=== PATIENT | female | born 1990 | race Caucasian/White ===

== ENCOUNTER → 2017-02-04 | Outpatient (CLI) | payer OTHER ==
[~2017-02-04] MED LIST: DOCU10ELUD FT; IBUP80TA FT; PERCOCET FT
--- NOTE | 2017-02-04 15:19 | REP ---
LUMBAR SPINE SERIES: Five views. HISTORY: Low back pain and left hip pain 1 day after fall. FINDINGS: Lumbar vertebral body heights are preserved. Alignment is normal. No fracture or collapse is seen. Pedicles and posterior elements are intact. Psoas margins are symmetric. Sacrum and SI joints are unremarkable. IMPRESSION: Negative lumbar spine radiographs. Signed by Juan Ceja MD 02/04/2017 03:22 P
--- NOTE | 2017-02-04 15:20 | REP ---
LEFT HIP: Two views. HISTORY: Pain 1 day after a fall. FINDINGS: AP and frog-leg views of the left hip show an intact left pelvic ring. The femoral head is smooth and rounded and hip joint space is preserved. No hip fracture is seen IMPRESSION: No fracture noted. Signed by Juan Ceja MD 02/04/2017 03:22 P
== END ==
LOC: M ADAMS 14:12
PROVIDERS: ATTEND Physician Assistant Medical
DX: M54.5 Low back pain (principal)

== ENCOUNTER 2017-05-23 06:05 | Day surgery (SDC) | payer OTHER ==
[2017-05-23] MEDS: LR 1,000 ML IV ×4 (06:36→17:16)
[2017-05-23 06:50] LABS: HEMATOCRIT 33.1 % (36.0-47.0); HEMOGLOBIN 10.9 g/dl (12.0-16.0); MEAN CORPUSCULAR HEMOGLOBIN 28.8 pg (27.0-33.0); MEAN CORPUSCULAR HGB CONC 32.9 g/dl (32.0-36.5); MEAN CORPUSCULAR VOLUME 87.6 fl (80.0-96.0); PLATELET COUNT, AUTOMATED 252 10^3/uL (150-450); RED BLOOD COUNT 3.78 10^6/uL (4.00-5.40); RED CELL DISTRIBUTION WIDTH 12.8 % (11.5-14.5); WHITE BLOOD COUNT 5.3 10^3/uL (4.0-10.0)
[2017-05-23] MEDS ORDERED: LIDOCAINE 2% INJ 100 MG/5 ML SDV (FOR ANES.) As Ordered (07:19)
[2017-05-23] MEDS ORDERED: ROCURONIUM BROMIDE 50 MG/5 ML VIAL As Ordered ×2 (07:19→07:45)
[2017-05-23] MEDS ORDERED: PROPOFOL 200 MG/20 ML VIAL As Ordered (07:19)
[2017-05-23] MEDS ORDERED: MIDAZOLAM INJ 2 MG/2 ML VIAL (J2250) As Ordered (07:20)
[2017-05-23] MEDS ORDERED: fentaNYL 250 MCG/5 ML INJECTION (J3010) As Ordered (07:20)
[2017-05-23] MEDS: CEFAZOLIN SOD 1 GM in APPROPRIATE DILUENT 1 EA IV (07:45)
[2017-05-23] MEDS ORDERED: KETOROLAC 60 MG/2 ML VIAL (J1885) As Ordered (08:01)
[2017-05-23] MEDS ORDERED: GLYCOPYRROLATE INJ 0.2 MG/ML 2 ML VIAL As Ordered (08:01)
[2017-05-23] MEDS ORDERED: ONDANSETRON 4MG/2ML VIAL (J2405) As Ordered (08:01)
[2017-05-23] MEDS ORDERED: dexameTHASONE 4 MG/ML 1ML VIAL (J1100) As Ordered (08:01)
[2017-05-23] MEDS ORDERED: NEOSTIGMINE 10 MG/10 ML VIAL (J2710) As Ordered (08:01)
[2017-05-23] MEDS ORDERED: HYDROmorphone HCL 2 MG/ML 1ML VIAL (J1170) As Ordered (08:02)
[2017-05-23] MEDS: BUPIVACAINE HCL 0.25% 10 ML VIAL As Ordered (08:15)
[2017-05-23] MEDS ORDERED: SEVOFLURANE INHAL SOLN 250 ML BTL As Ordered (08:23)
[2017-05-23] MEDS ORDERED: ePHEDrine SULFATE 25 MG/5 ML(5MG/ML) SYRINGE As Ordered (08:33)
[2017-05-23] MEDS: METHYLENE BLUE 0.5% (5MG/ML) 10 ML AMP (PROVAYBLUE)(Q9968 PER 1MG) As Ordered (08:52)
[2017-05-23] MEDS ORDERED: SUGAMMADEX SODIUM 500 MG/5 ML VIAL (BRIDION) As Ordered (09:06)
[2017-05-23] MEDS ORDERED: NORCO, ANEXSIA 5/325MG TABLET (HYDROcodone/ACETAMINOPHEN) As Ordered (09:33)
[2017-05-23] MEDS: NORCO, ANEXSIA 5/325MG TABLET (HYDROcodone/ACETAMINOPHEN) PO (09:38)
[2017-05-23] MEDS ORDERED: ONDANSETRON 4MG/2ML VIAL (J2405) IV ×2 (10:00→10:15)
[2017-05-23] MEDS ORDERED: fentaNYL 100 MCG/2 ML INJECTION (J3010) IV (10:00)
[2017-05-23] MEDS ORDERED: MORPHINE 4 MG/ML 1ML SYRINGE IV (10:15)
[2017-05-23] MEDS ORDERED: PERCOCET 5MG/325MG TAB PO (10:15)
[2017-05-23] MEDS: DOCUSATE SODIUM 100 MG CAP PO ×2 (10:54→20:27)
[2017-05-23] MEDS ORDERED: PROMETHAZINE INJ 25 MG/ML VIAL (J2550) As Ordered (11:59)
[2017-05-23] MEDS: PROMETHAZINE INJ 25 MG/ML VIAL (J2550) IV (12:08)
[2017-05-23] MEDS: PERCOCET 5MG/325MG TAB PO ×2 (13:58→20:29)
[2017-05-23] MEDS ORDERED: KETOROLAC 30 MG/ML VIAL (J1885) IV (17:00)
[2017-05-24 07:54] LABS: HEMATOCRIT 29.2 % (36.0-47.0); HEMOGLOBIN 9.5 g/dl (12.0-16.0); MEAN CORPUSCULAR HEMOGLOBIN 29.1 pg (27.0-33.0); MEAN CORPUSCULAR HGB CONC 32.5 g/dl (32.0-36.5); MEAN CORPUSCULAR VOLUME 89.6 fl (80.0-96.0); PLATELET COUNT, AUTOMATED 213 10^3/uL (150-450); RED BLOOD COUNT 3.26 10^6/uL (4.00-5.40); RED CELL DISTRIBUTION WIDTH 13.1 % (11.5-14.5); WHITE BLOOD COUNT 10.2 10^3/uL (4.0-10.0)
[2017-05-24] MEDS: DOCUSATE SODIUM 100 MG CAP PO (08:57)
[2017-05-24] MEDS: PERCOCET 5MG/325MG TAB PO (08:59)
== END 2017-05-24 11:05 | disposition home or self-care (01) ==
LOC: M SDC 06:05 → M PED 10:23
DX: D25.2 Subserosal leiomyoma of uterus (principal); D25.1 Intramural leiomyoma of uterus; N92.0 Excessive and frequent menstruation with regular cycle; N72 Inflammatory disease of cervix uteri; D64.9 Anemia, unspecified; R51 Headache; Z87.891 Personal history of nicotine dependence; Z98.51 Tubal ligation status
CPT/HCPCS: 58570

== ENCOUNTER → 2017-08-18 | Outpatient (CLI) | payer OTHER | LOC: M RAD 13:39 | DX: R10.2 Pelvic and perineal pain (principal); Z90.710 Acquired absence of both cervix and uterus | CPT/HCPCS: 76856 ==

== ENCOUNTER 2018-07-21 23:02 | Emergency (ER) | payer OTHER ==
[~2018-07-21 23:02] MED LIST changes: +MULT1TAB10 PO; +OXYC1TAB23 PO
[2018-07-22] MEDS ORDERED: ACETAMINOPHEN TAB 650MG DOSE (2X325MG) PO ONE (01:00)
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
[2018-07-22 02:42] VITALS: BP 115/76
== END 2018-07-22 02:43 | disposition home or self-care (01) ==
LOC: M ED 23:02
DX: S09.90XA Unspecified injury of head, initial encounter (principal); W19.XXXA Unspecified fall, initial encounter; Y92.830 Public park as the place of occurrence of the external cause; Y93.89 Activity, other specified; Y99.9 Unspecified external cause status; Z79.899 Other long term (current) drug therapy

== ENCOUNTER → 2018-12-04 | Outpatient (REF) | payer OTHER ==
[~2018-12-04] MED LIST changes: -DOCU10ELUD FT; +DOCU5LIQ FT; +OXYC1TAB23 FT; -PERCOCET FT
[2018-12-04 22:25] LABS: CHLAMYDIA DNA AMPLIFICATION NEGATIVE (NEGATIVE); GC DNA AMPLIFICATION NEGATIVE (NEGATIVE)
== END ==
LOC: M LAB REF 19:27
PROVIDERS: ATTEND Physician Assistant
DX: R30.0 Dysuria (principal)

== ENCOUNTER → 2019-02-21 | Outpatient (REF) | payer OTHER | LOC: M LAB REF 09:26 | PROVIDERS: ATTEND Physician Assistant Medical | DX: J02.9 Acute pharyngitis, unspecified (principal) ==

== ENCOUNTER → 2019-03-22 | Outpatient (CLI) | payer OTHER ==
--- NOTE | 2019-03-22 20:10 | REP ---
Clinical: Pelvic pain. Right ovarian cyst . Technique: Transabdominal pelvic ultrasound followed by transvaginal examination for better evaluation of the endometrium and adnexa with color Doppler evaluation of the ovaries. Findings: Bladder is unremarkable and measures 8.4 x 4.1 x 6.0 cm . The patient is status post hysterectomy. No pelvic mass or fluid collection is appreciated. Bilateral ovaries are normal in appearance and vascularity without evidence for torsion. Right ovary measures 2.2 x 2.4 x 2.2 cm ; R I = 0.30 . Left ovary measures 3.0 x 1.4 x 2.8 cm ; R I = 0.38 . Impression: 1. Status post hysterectomy. Normal bilateral ovaries. Electronically Signed by Ajit Delacruz MD 03/22/2019 08:02 P
--- NOTE | 2019-03-23 09:03 | REP ---
LEFT BREAST SONOGRAPHY: HISTORY: Solitary cyst left breast. The patient reports feeling a palpable lump in the left breast 5-6 o'clock position. FINDINGS: Scanning is performed from 4-6 -o'clock position in the left breast. In the palpable area of 5-o'clock position, there is a 7 x 6 x 2 mm cyst located 2.7 cm from the nipple. At 6-o'clock position, there is another cyst measuring 5 mm in greatest diameter. A few slightly prominent ducts are seen. No sonographically suspicious finding. IMPRESSION: BIRADS category 2 benign findings. Clinical followup is advised. Electronically Signed by uJan Ceja MD 03/23/2019 10:05 A
== END ==
LOC: M RAD 17:12
PROVIDERS: ATTEND Specialist
DX: N83.291 Other ovarian cyst, right side (principal); Z90.710 Acquired absence of both cervix and uterus

== ENCOUNTER → 2019-08-08 | Outpatient (REF) | payer OTHER ==
[2019-08-08 13:25] LABS: RUBELLA IgG QUALITATIVE IMMUNE (IMMUNE)
== END ==
LOC: M SFHCADAM 11:31
PROVIDERS: ATTEND Family Medicine
DX: Z01.84 Encounter for antibody response examination (principal)
CPT/HCPCS: 86762; 86765; G0463

== ENCOUNTER → 2019-10-15 | Outpatient (REF) | payer OTHER ==
[2019-10-15 16:45] LABS: HEMOGLOBIN A1c 5.2 %
[2019-10-15 17:08] LABS: FREE T4 0.87 NG/DL (0.76-1.46); THYROID STIMULATING HORMONE 1.88 uIU/ML (0.358-3.740)
[2019-10-15 17:11] LABS: FOLATE 14.8 NG/ML
== END ==
LOC: M SFHCADAM 13:40
PROVIDERS: ATTEND Family Medicine
DX: R20.2 Paresthesia of skin (principal)
CPT/HCPCS: 82607; 82746; 83036; 84439; 84443; G0463

== ENCOUNTER 2020-10-08 09:23 | Emergency (ER) | payer OTHER ==
[~2020-10-08] VITALS: Ht 154.9 cm; Wt 77.6 kg
[2020-10-08 10:44] LABS: BASO # 0.1 10^3/uL (0.0-0.2); BASO % 0.7 % (0.0-1.0); EOS # 0.2 10^3/uL (0.0-0.5); EOS % 3.1 % (0.0-3.0); HEMATOCRIT 40.3 % (36.0-47.0); HEMOGLOBIN 13.3 g/dl (12.0-15.5); LYMPH # 1.8 10^3/uL (1.5-5.0); LYMPH % 24.2 % (24.0-44.0); MEAN CORPUSCULAR HEMOGLOBIN 31.3 pg (27.0-33.0); MEAN CORPUSCULAR VOLUME 94.8 fl (80.0-96.0); MONO # 0.8 10^3/uL (0.0-0.8); NEUTROPHILS # 4.5 10^3/uL (1.5-8.5); NEUTROPHILS % 60.7 % (36.0-66.0); PLATELET COUNT, AUTOMATED 280 10^3/uL (150-450); RED BLOOD COUNT 4.25 10^6/uL (4.00-5.40); WHITE BLOOD COUNT 7.4 10^3/uL (4.0-10.0)
[2020-10-08 11:14] LABS: HCG, SERUM QUALITATIVE NEGATIVE (NEGATIVE)
[2020-10-08 11:16] LABS: ALBUMIN 3.8 GM/DL (3.2-5.2); ALT/SGPT 185 U/L (12-78); BILIRUBIN,DIRECT 0.1 MG/DL (0.0-0.2); BILIRUBIN,TOTAL 0.5 MG/DL (0.2-1.0); BLOOD UREA NITROGEN 7 MG/DL (7-18); CALCIUM LEVEL 9.7 MG/DL (8.5-10.1); CARBON DIOXIDE LEVEL 29 MEQ/L (21-32); CHLORIDE LEVEL 107 MEQ/L (98-107); CREATININE FOR GFR 0.65 MG/DL (0.55-1.30); GLOMERULAR FILTRATION RATE > 60.0 (>60); GLUCOSE, FASTING 90 MG/DL (70-100); LIPASE 104 U/L (73-393); POTASSIUM SERUM 4.1 MEQ/L (3.5-5.1); SODIUM LEVEL 141 MEQ/L (136-145); TOTAL PROTEIN 7.2 GM/DL (6.4-8.2)
[2020-10-08] MEDS ORDERED: ISOVUE-370 76% 100ML VIAL As Ordered ONE (11:49)
--- NOTE | 2020-10-08 12:13 | REP ---
INDICATION: RLQ pain, r/o appendicitis. COMPARISON: Comparison CT study January 09, 2019.. TECHNIQUE: Helical scanning was acquired and 4 mm axial images are re-formatted. Coronal and sagittal MPR images were generated and reviewed. The contrast enhancement dose is 100 mL of intravenous Isovue 370. FINDINGS: Preliminary digital railroad watchman radiograph shows a normal bowel gas pattern. Umbilical jewelry is seen. The lung bases are clear on axial CT images. The liver and the spleen are normal in size homogeneous in texture. No adrenal lesion is seen. No abnormality is noted in the pancreas or the gallbladder. The kidneys enhance symmetrically and are morphologically intact. No hydronephrosis or urinary tract calculus is seen. Bladder is unremarkable. The uterus is surgically absent. No adnexal abnormality is seen. A normal appendix is noted in the right lower quadrant retrocecal in position. No abdominal wall defect is seen. Bone window settings show no bony destructive lesion. IMPRESSION: Unremarkable CT of the abdomen and pelvis. Patient post hysterectomy. Normal appendix seen. No acute abdominal or pelvic abnormality. <Electronically signed by Charles Ceja > 10/08/20 [id number]
--- NOTE | 2020-10-08 13:10 | REP ---
INDICATION: rlq pain, r/o ovarian cyst vs torsion, s/p partial hysterect COMPARISON: 03/22/2019 TECHNIQUE: Transabdominal pelvic ultrasound followed by transvaginal examination for better evaluation of the endometrium and adnexa with color Doppler evaluation of the ovaries. FINDINGS: Bladder is unremarkable and measures 10.7 x 9.2 x 8.9 cm. Evidence for prior partial hysterectomy. No pelvic mass lesion or fluid. Bilateral ovaries are normal in appearance and vascularity without evidence for torsion. Right ovary measures 3.0 x 1.7 x 2.2 cm; R I = 0.63. Left ovary measures 2.6 x 1.9 x 2.1 cm and includes 1.7 x 1.7 x 1.4 cm presumed physiologic cyst/follicle; R I = 0.65. IMPRESSION: Presumed physiologic left ovarian cyst. <Electronically signed by Ajit Delacruz > 10/08/20 [id number]
[2020-10-08 14:39] LABS: HEPATITIS B SURFACE ANTIGEN NEGATIVE (NEGATIVE)
[2020-10-08 15:06] LABS: HEPATITIS B CORE ANTIBODY IGM NEGATIVE (NEGATIVE)
[2020-10-08 15:07] LABS: HEPATITIS A ANTIBODY IGM NEGATIVE (NEGATIVE)
[2020-10-08] MEDS ORDERED: FLAG500T PO (15:42)
[2020-10-08 15:43] LABS: CHLAMYDIA DNA AMPLIFICATION NEGATIVE (NEGATIVE); GC DNA AMPLIFICATION NEGATIVE (NEGATIVE)
[2020-10-08 16:12] VITALS: BP 116/79
== END 2020-10-08 16:14 | disposition home or self-care (01) ==
LOC: M ED 09:23
DX: N76.0 Acute vaginitis (principal); R74.01 Elevation of levels of liver transaminase levels; N83.202 Unspecified ovarian cyst, left side; F32.9 Major depressive disorder, single episode, unspecified; Z87.820 Personal history of traumatic brain injury; Z87.891 Personal history of nicotine dependence
CPT/HCPCS: 74177; 76830; 76856; 80048; 80076; 81001; 83690; 84703; 85025; 86705; 86709; 86803; 87210; 87340; 87661; 93976; 99284; Q9967

== ENCOUNTER → 2020-11-21 | Outpatient (CLI) | payer MEDICAID, OTHER ==
[~2020-11-21] MED LIST changes: +FLAG500T PO
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
== END ==
LOC: M PAIN 11:00
PROVIDERS: ATTEND Anesthesiology
DX: G57.91 Unspecified mononeuropathy of right lower limb (principal); G89.29 Other chronic pain; Z98.891 History of uterine scar from previous surgery; Z87.891 Personal history of nicotine dependence; Z79.899 Other long term (current) drug therapy

== ENCOUNTER → 2020-12-12 | Outpatient (CLI) | payer OTHER | LOC: M LABSMTC 12:59 | PROVIDERS: ATTEND Anesthesiology | DX: Z20.822 Contact with and (suspected) exposure to COVID-19 (principal) ==

== ENCOUNTER → 2020-12-17 | Outpatient (CLI) | payer MEDICAID, OTHER ==
[~2020-12-17] MED LIST changes: +BUPIVACAINE HCL 0.25% 30ML VIAL As Ordered ONE; +ISOVUE-M 300 61% 15ML VIAL As Ordered ONE; +LIDOCAINE 1% SDV 30ML VIAL As Ordered ONE; +TRIAMCINOLONE ACETONIDE SUSP 40 MG/ML VIAL (J3301) As Ordered ONE; +diazePAM 5MG TABLET As Ordered ONE; +oxyCODONE 5MG TAB As Ordered ONE
--- NOTE | 2020-12-19 01:01 | ECWPNPC ---
PATIENT NAME: CHARAN POON : 1990 GENDER: FEMALE VISIT DATE: 12/17/2020 DISCHARGE DATE: 12/17/20 1510 VISIT LOCKED DATE TIME: PHYSICIAN: KATHERIN MYERS MD PHYSICIAN PAGER NO: ACTIVE RESOURCE: KATHERIN MYERS MD REASON FOR APPOINTMENT 1. RIGHT ILLIOINGUINAL NERVE BLOCK HISTORY OF PRESENT ILLNESS FALL RISK SCREENING: SCREENING : [employer], HIGH CONTACT SP[employer], DENIES AN "INTENTIONAL FALLS" OR NEED FOR MEDICAL INTERVENTION.. PAIN SCREENING: PATIENT HAS A COMPLAINT OF ACUTE OR CHRONIC PAIN :YES LOCATION OF PAIN:ABDOMEN, OTHER: PELVIC REGION INTENSITY OF PAIN (SCALE OF 1 TO 10):4 2-10/10 WHAT DOES YOUR PAIN FEEL LIKE:BURNING, SHARP DURATION:CONTINOUS, AWAKENS FROM SLEEP PAIN IS INCREASED BY:ACTIVITIES, PROLONGED STANDING PAIN IS DECREASED BY:USE OF PAIN MEDICATIONS, OTHERS HEAT PLAN/GOALS/TREATMENT/INTERVENTION/FOLLOW UP:SEE PLAN NURSING NOTE: -. PAIN CENTER INTAKE QUESTIONS: DO YOU HAVE A HISTORY OF MRSA? :NO DO YOU TAKE A BLOOD THINNERS? :NO DO YOU HAVE ANY BLEEDING DISORDERS? :NO ANY NEW NUMBNESS OR WEAKNESS IN YOUR LEGS OR ARMS? :NO ANY PACEMAKER,DEFIBRILLATOR, OR DORSAL COLUMN STIMULATOR? :NO DO YOU HAVE ANY RASHES OR OPEN SORES? :NO ARE YOU ALLERGIC TO IV DYE? :NO ARE YOU DIABETIC? :NO ANY NEW PROBLEMS WITH YOUR MEDICATIONS? :NO HAVE YOU RECEIVED A VACCINE IN THE PAST 30 DAYS? :NO DO YOU PLAN TO RECEIVE A VACCINE IN THE NEXT 21 DAYS? :NO DO YOU TAKE ANY IMMUNOSUPPRESSIVE MEDICATIONS? :NO ANY HISTORY OF SEIZURES? :NO ANY HISTORY OF CARDIAC ISSUES OR EVENTS? :NO DO YOU HAVE ANY KIDNEY OR LIVER DISEASE? :YES ELEVATED LIVER ENZYMES, "FATTY LIVER DISEASE?" DR. PEÑA. F/U 3 MONTHS (04/05) DO YOU HAVE SLEEP APNEA? :NO ANY RECENT HEAD INJURY? :NO DO YOU HAVE ANY NEW INFECTIONS? :NO IS THERE A CHANCE YOU COULD BE ? :NO ARE YOU BREAST FEEDING? :NO WHEN DID YOU LAST EAT? : ----- WHEN DID YOU LAST DRINK? : ------ WHAT DID YOU LAST DRINK? : ------- NAME OF PERSON DRIVING YOU HOME? : KARAN TAYLOR (PARTNER) DO YOU HAVE ANY OTHER QUESTIONS OR CONCERNS? : NO CURRENT MEDICATIONS TAKING MULTIVITAMIN ADULT - TABLET 1 TAB ORALLY DAILY NOT-TAKING CORTISPORIN 3.5-00642-7 SOLUTION 4 DROPS INTO AFFECTED EAR OTIC THREE TIMES A DAY NOT-TAKING CLINDAMYCIN HCL 300 MG CAPSULE 1 CAPSULE ORALLY EVERY 8 HRS NOT-TAKING BACITRACIN 500 UNIT/GM OINTMENT 1 APPLICATION OF 0.5 INCH RIBBON OPHTHALMIC RIGHT EYE EVERY 4 HOURS WHILE AWAKE NOT-TAKING MICRONOR 0.35 1 TABLET BY MOUTH DAILY MEDICATION LIST REVIEWED AND RECONCILED WITH THE PATIENT PAST MEDICAL HISTORY BLOOD TRANSFUSION 2010 1 VAGINAL DELIVERY AND 1 C SECTION BLOOD TRANSFUSION FROM MENORRHAGIA FROM UTERINE FIBROIDS (2010) ELEVATED LIVER ENZYMES, POSSIBLE NON-ALCOHOLIC FATTY LIVER (FOLLWING DR. PEÑA) ALLERGIES N.K.D.A. SOCIAL HISTORY GENERAL: TOBACCO USE ARE YOU A:FORMER SMOKER HOW LONG HAS IT BEEN SINCE YOU LAST SMOKED?3-6 MONTHS LATEX QUESTIONNAIRE LATEX ALLERGY : HAVE YOU EVER DEVELOPED ANY TYPE OF REACTION AFTER HANDLING LATEX PRODUCTS SUCH RUBBER GLOVES, CONDOMS, DIAPHRAGMS, BALLOONS, SOCKS, OR UNDERWEAR?NO LATEX ALLERGY : HAVE YOU EVER DEVELOPED ANY TYPE OF REACTION DURING OR AFTER DENTAL APPOINTMENT, VAGINAL/RECTAL EXAMINATION, SURGICAL PROCEDURE, OR ANY OTHER EXPOSURE?NO LATEX RISK : HAVE YOU EVER HAD ANY DIFFICULTY BREATHING OR HIVES AFTER EATING OR HANDLING ANY FRUITS, OR VEGETABLES; SUCH KIWI, BANANAS, STONE FRUITS, OR CHESTNUTSNO LATEX RISK : DO YOU HAVE A PREVIOUS PERSONAL HISTORY OF MORE THAN NINE SURGERIES, SPINA BIFIDA, OR REPEATED CATHERIZATIONS? NO LATEX RISK : ARE YOU FREQUENTLY EXPOSED TO LATEX PRODUCTS IN YOUR OCCUPATION?NO DATE ASKED : 12/16/2020 ALCOHOL SCREENING DID YOU HAVE A DRINK CONTAINING ALCOHOL IN THE PAST YEAR?YES HOW OFTEN DID YOU HAVE A DRINK CONTAINING ALCOHOL IN THE PAST YEAR?TWO TO FOUR TIMES A MONTH (2 POINTS) HOW MANY DRINKS DID YOU HAVE ON A TYPICAL DAY WHEN YOU WERE DRINKING IN THE PAST YEAR?1 OR 2 (0 POINTS) HOW OFTEN DID YOU HAVE SIX OR MORE DRINKS ON ONE OCCASION IN THE PAST YEAR?NEVER (0 POINTS) POINTS2 INTERPRETATIONNEGATIVE RECREATIONAL DRUG USE DRUG USE?NO CAFFEINE CAFFEINE USE?YES CAFFEINE USE?YES 2 DAILY HOW OFTEN AND HOW MUCH? 2 COFFEE SEXUAL HX HAD SEX IN THE LAST 12 MONTHS (VAGINAL, ORAL, OR ANAL)?YES HAD SEX IN THE LAST 12 MONTHS (VAGINAL, ORAL, OR ANAL)?YES WITHMEN ONLY WITHMEN ONLY USE PROTECTION?NO HAVE YOU EVER HAD AN STD?NO HAVE YOU EVER HAD AN STD?NO LMP:HYSTERECTOMY HIV / HEP-C SCREENING HIV TEST OFFERED TO PATIENT:YES HIV TEST OFFERED TO PATIENT:YES DATE OFFERED:05/17/2019 DATE OFFERED:05/22/2019 TEST ACCEPTED:NO TEST ACCEPTED:NO REASON:PATIENT DECLINED REASON:OTHER (DOCUMENT IN NOTE) BROCHURE PROVIDED TO PATIENTNO BROCHURE PROVIDED TO PATIENTNO HEP-C TEST OFFERED TO PATIENT:NO HEP-C TEST OFFERED TO PATIENT:YES DATE OFFERED:05/22/2019 TEST ACCEPTED:NO ROMAN CATHOLIC [id number] YAZDANISM LANGUAGE LANGUAGES SPOKEN:SAUDI ARABIAN LANGUAGES SPOKEN:SAUDI ARABIAN EDUCATION LEVEL OF EDUCATION:NOT FINISHED COLLEGE LEVEL OF EDUCATION:NOT FINISHED COLLEGE LEARNING BARRIERS / SPECIAL NEEDS CHANGE FROM LAST VISIT?NO BARRIERS TO LEARNING?NO HEARING IMPAIRED?NO VISION IMPAIRED?YES :CORRECTIVE LENSES COGNITIVELY IMPAIRED?NO READINESS TO LEARN?YES LEARNING PREFERENCES?NO LEARNING CAPABILITIES PRESENT?YES EMOTIONAL BARRIERS?NO SPECIAL DEVICES?NO PRESCHOOL PRINCIPAL NEEDED?NO DOMESTIC VIOLENCE DO YOU FEEL SAFE IN YOUR ENVIRONMENT?YES STATUS: NO HISTORY OF ABUSE OCCUPATION: SELF EMPLOYED.. DIET: VEGETARIAN. EXERCISE: NO REGULAR EXERCISE. MARITAL STATUS: . OTHERS AT HOME: PATIENTS FATHER AND TWO CHILDREN. SHE ENJOYS [employer]. VITAL SIGNS WT 154.8 LBS, WT-KG 70.22 KG, HT 62", BMI 28.31 INDEX, BP 107/66 MM HG, HR 69 /MIN, RR 18 /MIN, TEMP 97.4 F, OXYGEN SAT % 100%, NA INITIALS SC 12:06. EXAMINATION GENERAL EXAMINATION: THE PATIENT IS ALERT, ORIENTED TIMES THREE AND COOPERATIVE. LUNGS ARE CLEAR TO AUSCULTATION. HEART SHOWS REGULAR RHYTHM, NO MURMURS AND NO GALLOPS. 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 PROCEDURES PAIN NURSING RECORD PROCEDURE IN ROOM 1355, PHYSICIAN IN ROOM 1415, START 1432, FINISH 1458, PHYSICIAN OUT OF ROOM 1458, OUT OF ROOM 1500, ECG NORMAL SINUS, PATIENT SHIELDED N/A, SAFETY STRAP N/A, PREP CHLOROPREP DR. MYERS, DRESSING TEGADERM DR. MYERS LOC: 1. ALERT, ORIENTED, [facility] 12/17/2020 2:25:36 PM > RESP: 1. REGULAR, NO DYSPNEA, [facility] 12/17/2020 2:25:43 PM > COLOR: 1. PINK, [facility] 12/17/2020 2:25:49 PM > SKIN: 1. WARM, DRY, [facility] 12/17/2020 2:25:54 PM > POSITION: 2. SUPINE, [facility] 12/17/2020 2:26:02 PM > VITALS: 1430 - HR 81, 113/69, 100% R14 1445- HR81, 119/72, 100%, R14 EXIT VITALS 1507- HR 76, 120/80, 100% R14 PAIN 0/110 NOTES Syeda PRYOR RN COMPLETION OF PROCEDURE APPOINTMENT: POST PAIN 0, DRESSING SITE DRY AND INTACT, IV N/A, GAIT WHEELCHAIR DR Bowling REQUESTS THAT PATIENT NOT TRUST HER R LEG TODAY, TEACHING COMPLETED, PATIENT ACKNOWLEDGES UNDERSTANDING YES, PROCEDURE APPOINTMENT COMPLETED AT 1507 PRE PROCEDURE DIAGNOSIS RIGHT ILIOINGUINAL NEURALGIA POST PROCEDURE DIAGNOSIS RIGHT ILIOINGUINAL NEURALGIA PROCEDURE RIGHT ILIOINGUINAL NERVE BLOCK SURGEON DR. KATHERIN MYERS ANESTHESIA LOCAL PRE PROCEDURE NOTE THE PATIENT IS SUFFERING OF INGUINAL PAIN AND NEURALGIA. I REVIEWED THE CHART AND DISCUSSED THE CASE WITH THE PATIENT. AFTER DISCUSSING RISK, BENEFITS AND ALTERNATIVES ASSOCIATED WITH THE PROCEDURE, THE PATIENT UNDERSTANDS AND AGREES TO MOVE FORWARD. THE PATIENT IS COVID-19 NEGATIVE DESCRIPTION OF PROCEDURE AFTER CONSENT WAS SIGNED THE PATIENT WAS TAKEN TO THE PROCEDURE ROOM AND PLACED IN THE SUPINE POSITION. THE RIGHT INGUINAL AREA WAS CLEANED WITH CHLORAPREP SOLUTION AND DRAPED ASEPTICALLY. A TIMEOUT WAS PERFORMED WHERE THE CONSENTED SITE WAS VERIFIED WITH EVERYONE IN THE ROOM. THE PROCEDURE WAS DONE UNDER STERILE STANDARD TECHNIQUES. THE RIGHT SUPERIOR ANTERIOR ILIAC SPINE WAS PALPATED. I CONFIRMED AGAIN SITE OF [employer]. LIDOCAINE WAS USED TO NUMB THE SKIN AND SUBCUTANEOUS TISSUE BELOW IT. THE ENTRY POINT WAS SELECTED 1 INCH MEDIAL AND CAUDAL. THEN, USING A NERVE STIMULATOR, APPROPRIATE STIMULATION OF THE NERVE WAS INDUCED PER PATIENT'S FEEDBACK, FIRST AT 3.0 VOLTS AND THEN AT 1.0 VOLTS AND THEN AT 0.8 VOLTS. THERE WAS NO EVIDENCE OF BLOOD, PARESTHESIA OR VISCERAL PUNCTURE. THEN A SOLUTION OF 15 ML OF BUPIVACAINE 0.125% AND KENALOG 40 MG WAS INJECTED SLOWLY APPROXIMATELY 0.5 INCHES DEEP WITH THE ASSISTANCE OF THE NERVE STIMULATOR DESCRIBED ABOVE. THE MEDICATIONS WERE VERIFIED WITH THE NURSE. THE PATIENT TOLERATED THE PROCEDURE WITHOUT COMPLICATIONS AND WAS SENT TO THE RECOVERY ROOM. ESTIMATED BLOOD LOSS WAS LESS THAN 5 ML POST PROCEDURE NOTE I WILL SEE THE PATIENT IN A FOLLOW UP IN THE NEXT FEW WEEKS. WE ARE LOOKING FOR LONG LASTING PAIN RELIEF WITH THIS INTERVENTION. INSTRUCTIONS WERE GIVEN QUESTIONS WERE ANSWERED AND THE PATIENT REPORTS UNDERSTANDING AND AGREES. I, JAZMINE VALENCIA, DOCUMENTED THE ABOVE INFORMATION ACTING A SCRIBE FOR DR. MYERS. I HAVE REVIEWED THE ABOVE DOCUMENT, WRITTEN BY JAZMINE VALENCIA, SCIENCE LIAISON, AND I VERIFY THAT IT IS ACCURATE PROCEDURE CODES 41507 N BLOCK INJ ILIO-ING/HYPOGI, MODIFIERS: RT DISPOSITION & COMMUNICATION FOLLOW UP FOLLOW UP WITH UNDERGROUND MINING SECTION FOREMAN (REASON: POST RIGHT ILIOINGUINAL NERVE BLOCK) ELECTRONICALLY SIGNED BY KATHERIN MYERS MD, MD ON 12/18/2020 AT 12:37 PM EDT DISCLAIMER : THIS IS A VISIT SUMMARY EXTRACTED FROM THE [employer] CHART. IT IS NOT A COPY OF THE [employer] PROGRESS NOTE. NERISSA
== END ==
LOC: M PAIN 11:40
PROVIDERS: ATTEND Anesthesiology
DX: G57.91 Unspecified mononeuropathy of right lower limb (principal); Z87.891 Personal history of nicotine dependence; Z79.899 Other long term (current) drug therapy
CPT/HCPCS: 64425; J3301; Q9967

== ENCOUNTER → 2021-01-07 | Outpatient (CLI) | payer OTHER ==
[~2021-01-07] MED LIST changes: +APAP325T4 PO; -BUPIVACAINE HCL 0.25% 30ML VIAL As Ordered ONE; -ISOVUE-M 300 61% 15ML VIAL As Ordered ONE; -LIDOCAINE 1% SDV 30ML VIAL As Ordered ONE; +MOTR200T44 PO; -TRIAMCINOLONE ACETONIDE SUSP 40 MG/ML VIAL (J3301) As Ordered ONE; -diazePAM 5MG TABLET As Ordered ONE; -oxyCODONE 5MG TAB As Ordered ONE
--- NOTE | 2021-01-11 23:44 | ECWPNPC ---
PATIENT NAME: CHARAN POON : 1990 GENDER: FEMALE VISIT DATE: 01/07/2021 DISCHARGE DATE: 01/07/21 1549 VISIT LOCKED DATE TIME: PHYSICIAN: KATHERIN MYERS MD PHYSICIAN PAGER NO: ACTIVE RESOURCE: KATHERIN MYERS MD REASON FOR APPOINTMENT 1. POST RIGHT ILLIOINGUINAL NERVE BLOCK HISTORY OF PRESENT ILLNESS GENERAL: 30-YEAR-OLD FEMALE PATIENT WITH A HISTORY OF CHRONIC RIGHT ABDOMINAL AND PELVIC PAIN. THE PATIENT DESCRIBES THE PAIN ACHING, BURNING AND SHARP WITH A PAIN SCORE RANGING FROM 6-9/10. WE DID A RIGHT ILIOINGUINAL NERVE BLOCK THAT DID BLOCK THE AREA OF THE RIGHT ILIOINGUINAL NERVE BUT THE PATIENT DISCOVERED THAT IS NOT THE AREA OF THE PAIN AND THAT THE PAIN IS ACTUALLY HIGHER. THE PATIENT IS LOOKING FOR ALTERNATIVES. SHE CANNOT FUNCTION WITH THIS. IT IS EXTREMELY PAINFUL AND SHE NEEDS HELP. FALL RISK SCREENING: SCREENING : NO FALLS REPORTED IN THE LAST YEAR. PAIN SCREENING: PATIENT HAS A COMPLAINT OF ACUTE OR CHRONIC PAIN :YES LOCATION OF PAIN:ABDOMEN INTENSITY OF PAIN (SCALE OF 1 TO 10):7 WHAT DOES YOUR PAIN FEEL LIKE:BURNING, SHARP DURATION:CONTINOUS PAIN IS INCREASED BY:ACTIVITIES PAIN IS DECREASED BY: HEAT NURSING NOTE: -. PAIN CENTER INTAKE QUESTIONS: DO YOU HAVE A HISTORY OF MRSA? :NO DO YOU TAKE A BLOOD THINNERS? :NO DO YOU HAVE ANY BLEEDING DISORDERS? :NO ANY NEW NUMBNESS OR WEAKNESS IN YOUR LEGS OR ARMS? :YES NUMBNESS TO RIGHT GROIN ANY PACEMAKER,DEFIBRILLATOR, OR DORSAL COLUMN STIMULATOR? :NO DO YOU HAVE ANY RASHES OR OPEN SORES? :NO ARE YOU ALLERGIC TO IV DYE? :NO ARE YOU DIABETIC? :NO ANY NEW PROBLEMS WITH YOUR MEDICATIONS? :NO HAVE YOU RECEIVED A VACCINE IN THE PAST 30 DAYS? :NO DO YOU PLAN TO RECEIVE A VACCINE IN THE NEXT 21 DAYS? :NO DO YOU NEED ANY PRESCRIPTION? :NO DO YOU TAKE ANY IMMUNOSUPPRESSIVE MEDICATIONS? :NO DO YOU HAVE ANY KIDNEY OR LIVER DISEASE? :YES NON-ALCHOHOLIC FATTY LIVER DISEASE IS THERE A CHANCE YOU COULD BE ? :NO ARE YOU BREAST FEEDING? :NO CURRENT MEDICATIONS TAKING MULTIVITAMIN ADULT - TABLET 1 TAB ORALLY DAILY NOT-TAKING CORTISPORIN 3.5-05294-3 SOLUTION 4 DROPS INTO AFFECTED EAR OTIC THREE TIMES A DAY NOT-TAKING CLINDAMYCIN HCL 300 MG CAPSULE 1 CAPSULE ORALLY EVERY 8 HRS NOT-TAKING BACITRACIN 500 UNIT/GM OINTMENT 1 APPLICATION OF 0.5 INCH RIBBON OPHTHALMIC RIGHT EYE EVERY 4 HOURS WHILE AWAKE NOT-TAKING MICRONOR 0.35 1 TABLET BY MOUTH DAILY MEDICATION LIST REVIEWED AND RECONCILED WITH THE PATIENT PAST MEDICAL HISTORY BLOOD TRANSFUSION 2010 1 VAGINAL DELIVERY AND 1 C SECTION BLOOD TRANSFUSION FROM MENORRHAGIA FROM UTERINE FIBROIDS (2010) ELEVATED LIVER ENZYMES, POSSIBLE NON-ALCOHOLIC FATTY LIVER (FOLLWING DR. PEÑA) ALLERGIES N.K.D.A. SOCIAL HISTORY GENERAL: TOBACCO USE ARE YOU A:FORMER SMOKER HOW LONG HAS IT BEEN SINCE YOU LAST SMOKED?3-6 MONTHS LATEX QUESTIONNAIRE LATEX ALLERGY : HAVE YOU EVER DEVELOPED ANY TYPE OF REACTION AFTER HANDLING LATEX PRODUCTS SUCH RUBBER GLOVES, CONDOMS, DIAPHRAGMS, BALLOONS, SOCKS, OR UNDERWEAR?NO LATEX ALLERGY : HAVE YOU EVER DEVELOPED ANY TYPE OF REACTION DURING OR AFTER DENTAL APPOINTMENT, VAGINAL/RECTAL EXAMINATION, SURGICAL PROCEDURE, OR ANY OTHER EXPOSURE?NO LATEX RISK : HAVE YOU EVER HAD ANY DIFFICULTY BREATHING OR HIVES AFTER EATING OR HANDLING ANY FRUITS, OR VEGETABLES; SUCH KIWI, BANANAS, STONE FRUITS, OR CHESTNUTSNO LATEX RISK : DO YOU HAVE A PREVIOUS PERSONAL HISTORY OF MORE THAN NINE SURGERIES, SPINA BIFIDA, OR REPEATED CATHERIZATIONS? NO LATEX RISK : ARE YOU FREQUENTLY EXPOSED TO LATEX PRODUCTS IN YOUR OCCUPATION?NO DATE ASKED : 12/16/2020 ALCOHOL SCREENING DID YOU HAVE A DRINK CONTAINING ALCOHOL IN THE PAST YEAR?YES HOW OFTEN DID YOU HAVE A DRINK CONTAINING ALCOHOL IN THE PAST YEAR?TWO TO FOUR TIMES A MONTH (2 POINTS) HOW MANY DRINKS DID YOU HAVE ON A TYPICAL DAY WHEN YOU WERE DRINKING IN THE PAST YEAR?1 OR 2 (0 POINTS) HOW OFTEN DID YOU HAVE SIX OR MORE DRINKS ON ONE OCCASION IN THE PAST YEAR?NEVER (0 POINTS) POINTS2 INTERPRETATIONNEGATIVE RECREATIONAL DRUG USE DRUG USE?NO CAFFEINE CAFFEINE USE?YES 2 DAILY CAFFEINE USE?YES HOW OFTEN AND HOW MUCH? 2 COFFEE SEXUAL HX HAD SEX IN THE LAST 12 MONTHS (VAGINAL, ORAL, OR ANAL)?YES HAD SEX IN THE LAST 12 MONTHS (VAGINAL, ORAL, OR ANAL)?YES WITHMEN ONLY WITHMEN ONLY USE PROTECTION?NO HAVE YOU EVER HAD AN STD?NO HAVE YOU EVER HAD AN STD?NO LMP:HYSTERECTOMY HIV / HEP-C SCREENING HIV TEST OFFERED TO PATIENT:YES HIV TEST OFFERED TO PATIENT:YES DATE OFFERED:05/17/2019 DATE OFFERED:05/22/2019 TEST ACCEPTED:NO TEST ACCEPTED:NO REASON:PATIENT DECLINED REASON:OTHER (DOCUMENT IN NOTE) BROCHURE PROVIDED TO PATIENTNO BROCHURE PROVIDED TO PATIENTNO HEP-C TEST OFFERED TO PATIENT:YES HEP-C TEST OFFERED TO PATIENT:NO DATE OFFERED:05/22/2019 TEST ACCEPTED:NO CHRISTIANITY [id number] HINDU LANGUAGE LANGUAGES SPOKEN:BURUNDIAN LANGUAGES SPOKEN:BURUNDIAN EDUCATION LEVEL OF EDUCATION:NOT FINISHED COLLEGE LEVEL OF EDUCATION:NOT FINISHED COLLEGE LEARNING BARRIERS / SPECIAL NEEDS CHANGE FROM LAST VISIT?NO BARRIERS TO LEARNING?NO HEARING IMPAIRED?NO VISION IMPAIRED?YES :CORRECTIVE LENSES COGNITIVELY IMPAIRED?NO READINESS TO LEARN?YES LEARNING PREFERENCES?NO LEARNING CAPABILITIES PRESENT?YES EMOTIONAL BARRIERS?NO SPECIAL DEVICES?NO STOVE TENDER NEEDED?NO DOMESTIC VIOLENCE STATUS: NO HISTORY OF ABUSE DO YOU FEEL SAFE IN YOUR ENVIRONMENT?YES OCCUPATION: SELF EMPLOYED.. DIET: VEGETARIAN. EXERCISE: NO REGULAR EXERCISE. MARITAL STATUS: . OTHERS AT HOME: PATIENTS FATHER AND TWO CHILDREN. SHE ENJOYS [employer]. REVIEW OF SYSTEMS CONSTITUTIONAL: ANY RECENT FEVER NO . CHILLS NO . WEIGHT CHANGE OF UNKNOWN REASONS NO . GASTROENTEROLOGY: NEW UNEXPLAINABLE CHANGES IN BOWEL CONTROL NO . CONSTIPATION NO . GENITOURINARY: ANY NEW CHANGE IN BLADDER CONTROL? NO . NEUROLOGY: NEW ONSET DIZZINESS OR NEUROLOGICAL CHANGES NOT MENTIONED NO . NEW NUMBNESS OR PAIN PATTERNS NOT MENTIONED AND PERTINENT TO TODAY'S VISIT NO . CARDIOLOGY: NEW CHEST PRESSURE NO . PATIENT DENIES NO . RESPIRATORY: UNEXPLAINABLE COUGH NO . NEW SHORTNESS OF BREATH NO . VITAL SIGNS WT 152.4 LBS, WT-KG 69.13 KG, HT 62", BMI 27.87 INDEX, BP 129/67 MM HG, HR 77 /MIN, RR 18 /MIN, TEMP 97.7 F, OXYGEN SAT % 99%, SAFE IN ENV? (Y/N) Y, NA INITIALS AW 1440, REVIEWED BY: EM. EXAMINATION GENERAL: THE PATIENT IS ALERT, ORIENTED TIMES THREE AND COOPERATIVE. THERE IS PAIN OVER THE RIGHT LOWER ABDOMINAL QUADRANT WITH PRESSURE MOVING TOWARDS THE MEDIAL ASPECT OF THE ABDOMINAL CAVITY CLOSE TO THE SCAR OF HER . 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 POON. WE CAN PERFORM A SCAR NEUROMA INJECTION UNDER ULTRASOUND TO SEE IF THAT HELPS HER. CONCERN WOULD BE ABDOMINAL PUNCTURE WHICH IS DEFINITELY CONCERNING BUT WITH ULTRASOUND, I FEEL THAT THIS CAN BE DONE SAFELY. I WILL REQUEST AUTHORIZATION FOR A RIGHT ABDOMINAL SCAR NEUROMA. BOOK AFTER APPROVED. THE PATIENT REPORTS UNDERSTANDING AND AGREES WITH THE PLAN. I, JAZMINE VALENCIA, DOCUMENTED THE ABOVE INFORMATION ACTING A SCRIBE FOR DR. MYERS. I HAVE REVIEWED THE ABOVE DOCUMENT, WRITTEN BY JAZMINE VALENCIA, FISHERIES BIOLOGIST, AND I VERIFY THAT IT IS ACCURATE. VISIT CODES PROCEDURE CODES FA211 ESTABILISHED PATIENT [facility] FACILITY CHARGE 70028 OFFICE/OUTPATIENT VISIT EST DISPOSITION & COMMUNICATION FOLLOW UP REQUEST AUTH FOR SCAR NEUROMA RIGHT ABDOMEN THIS IS A VERY LONG PROCEDURE. PLEASE BOOK FOR 1.5 HOURS. (REASON: REQUEST AUTH FOR SCAR NEUROMA RIGHT ABDOMEN THIS IS A VERY LONG PROCEDURE. PLEASE BOOK FOR 1.5 HOURS. ) ELECTRONICALLY SIGNED BY KATHERIN MYERS MD, MD ON 01/11/2021 AT 07:48 PM EDT DISCLAIMER : THIS IS A VISIT SUMMARY EXTRACTED FROM THE [employer] CHART. IT IS NOT A COPY OF THE [employer] PROGRESS NOTE. MTDD
== END ==
LOC: M PAIN 14:30
PROVIDERS: ATTEND Anesthesiology
DX: D36.15 Benign neoplasm of peripheral nerves and autonomic nervous system of abdomen (principal); G89.29 Other chronic pain; Z87.891 Personal history of nicotine dependence; Z79.899 Other long term (current) drug therapy

== ENCOUNTER 2021-01-13 07:04 | Emergency (ER) | payer OTHER ==
[~2021-01-13] VITALS: Ht 154.9 cm; Wt 65.9 kg
[~2021-01-13 07:04] MED LIST changes: -APAP325T4 PO; -MOTR200T44 PO
[2021-01-13 07:13] VITALS: BP 132/79
[2021-01-13] MEDS ORDERED: MOTR200T44 PO (07:17)
[2021-01-13] MEDS ORDERED: APAP325T4 PO (07:17)
[2021-01-13] MEDS ORDERED: diphenhydrAMINE 50MG/ML VIAL (J1200) IV ONE (11:10)
[2021-01-13] MEDS ORDERED: KETOROLAC 30 MG/ML 1ML VIAL IV ONE (11:10)
[2021-01-13] MEDS ORDERED: METOCLOPRAMIDE INJ 10MG/2ML VIAL (J2765 PER 1) IV ONE (11:10)
[2021-01-13] MEDS ORDERED: NS 1,000 ML IV ONE (11:10)
[2021-01-13] MEDS ORDERED: ACETAMINOPHEN 500 MG TAB PO ONE (11:10)
--- NOTE | 2021-01-13 14:14 | REPVR ---
PROCEDURE INFORMATION: Exam: CT Head Without Contrast Exam date and time: 01/13/2021 2:08 PM Age: 30 years old Clinical indication: Visual disturbance; Additional info: Headahce, blurry vision TECHNIQUE: Imaging protocol: Computed tomography of the head without contrast. Radiation optimization: All CT scans at this facility use at least one of these dose optimization techniques: automated exposure control; mA and/or kV adjustment per patient size (includes targeted exams where dose is matched to clinical indication); or iterative reconstruction. COMPARISON: CT Head without contrast 07/22/2018 12:54 AM FINDINGS: Brain: There is no acute intracranial hemorrhage. No extra-axial fluid collection. No evidence of acute infarct. Pedro white differentiation is intact. There is no evidence of mass. There is no mass effect or midline shift. Cerebral ventricles: No ventriculomegaly. Paranasal sinuses: Visualized sinuses are unremarkable. No fluid levels. Mastoid air cells: No significant mastoid effusion. Bones/joints: No acute fracture. Soft tissues: Unremarkable as visualized. IMPRESSION: No evidence of acute intracranial abnormality. No acute hemorrhage. No evidence of acute infarct or mass. Electronically signed by: Thea العلي On 01/13/2021 14:14:24 PM
== END 2021-01-13 15:46 | disposition home or self-care (01) ==
LOC: M ED 07:04
DX: G43.909 Migraine, unspecified, not intractable, without status migrainosus (principal); Z87.891 Personal history of nicotine dependence; Z87.820 Personal history of traumatic brain injury
CPT/HCPCS: 70450; 96361; 96374; 99284; J1200; J1885; J2765

== ENCOUNTER → 2021-02-26 | Outpatient (CLI) | payer OTHER ==
[~2021-02-26] MED LIST changes: +APAP325T4 PO; +MOTR200T44 PO
== END ==
LOC: M LABSMTC 11:05
PROVIDERS: ATTEND Anesthesiology
DX: Z01.812 Encounter for preprocedural laboratory examination (principal); Z20.822 Contact with and (suspected) exposure to COVID-19

== ENCOUNTER → 2021-03-03 | Outpatient (CLI) | payer OTHER ==
--- NOTE | 2021-03-03 15:05 | REP ---
INDICATION: BILATERAL BREAST LUMPS X2 AT 500 LEFT BREAST, 600 RIGHT JAYDE; BILATERAL BREAST LUMPS X2 LT 500, RT 600. COMPARISON: None. TECHNIQUE: MLO and CC views bilateral breasts with tomosynthesis. Bilateral breast ultrasound. FINDINGS: There is moderate heterogeneous fibroglandular tissue bilaterally which is somewhat dense. A palpable lump is marked on the skin inferolaterally on the right and in the region of the left upper outer quadrant anteriorly. In the lateral right breast there is a relatively smoothly marginated nodule approximately 1.8 cm in diameter located approximately 5 cm from the nipple. Two smoothly marginated nodules are seen in the medial aspect of the right breast approximately 6 cm from the nipple each measuring between 9 and 10 mm in diameter. On the left a retroareolar smoothly marginated nodule measures approximately 1.5 cm, slightly laterally located. At 6 o'clock there is an 11 mm smoothly marginated nodule approximately 6-7 cm from the nipple. No clustered microcalcifications are seen. Real-time sonographic evaluation of right breast performed. The reported palpable abnormality on the right corresponds to a complex cystic lesion with internal echoes measuring 4 x 5 x 9 mm at the 6 o'clock position, elastography KPA is 5.88. Laterally in the right breast at the site of the smoothly marginated nodule at 9 o'clock, there is a hypoechoic nodule 18 x 7 x 17 mm with KP a value 51.8. The 2 smoothly marginated nodules in the medial aspect of the right breast correspond to a cluster of cysts, the largest 9 x 5 x 6 mm. Real-time sonographic evaluation of the left breast at the site of the palpable lump demonstrates a solid retroareolar nodule with internal blood flow with Doppler evaluation measuring 14 x 9 x 14 mm. KP a value 15.3. At the 6 o'clock position of the left breast there is an oval cyst with internal echoes measuring 10 x 4 x 15 mm, KP a value 32 point The Volpara volumetric breast density pattern is C. IMPRESSION: BIRADS/ACR category 4, suspicious. At the site of the palpable lump inferiorly in the right breast there is a complex cystic lesion with extensive internal echoes measuring 4 x 5 x 9 mm. Recommend ultrasound-guided biopsy. A hypoechoic nodule in the lateral right breast is seen mammographically and sonographically, with a maximum diameter of 18 mm, recommend ultrasound-guided biopsy. In the left retroareolar region there is a solid nodule with a maximum diameter of 1.4 cm seen both mammographically and sonographically. Recommend ultrasound-guided biopsy. This patient's Tyrer-Cuzick lifetime breast cancer risk assessment score is 17.4%. This mammogram was interpreted with the aid of an FDA-approved computer-aided detection system. The patient states she had a clinical breast exam in January 2021. The patient letter being requested is M4. RECOMMENDATION: Recommend bilateral ultrasound-guided biopsy and postprocedure mammography. <Electronically signed by Anoop Pedro > 03/03/21 [id number]
== END ==
LOC: M WHC 10:58
PROVIDERS: ATTEND Specialist
DX: N63.10 Unspecified lump in the right breast, unspecified quadrant (principal); N63.20 Unspecified lump in the left breast, unspecified quadrant
CPT/HCPCS: 76642; 77066; G0279

== ENCOUNTER → 2021-03-03 | Outpatient (CLI) | payer OTHER ==
[~2021-03-03] MED LIST changes: +BUPIVACAINE HCL 0.25% 10ML VIAL As Ordered ONE; +BUPIVACAINE HCL 0.25% 30ML VIAL As Ordered ONE; +TRIAMCINOLONE ACETONIDE SUSP 40 MG/ML VIAL (J3301) As Ordered ONE; +diazePAM 5MG TABLET As Ordered ONE; +oxyCODONE 5MG TAB As Ordered ONE
== END ==
LOC: M PAIN 13:45
PROVIDERS: ATTEND Anesthesiology
DX: D36.15 Benign neoplasm of peripheral nerves and autonomic nervous system of abdomen (principal); Z87.891 Personal history of nicotine dependence; Z79.899 Other long term (current) drug therapy
CPT/HCPCS: 11900; J3301

== ENCOUNTER → 2021-03-25 | Outpatient (CLI) | payer OTHER ==
[~2021-03-25] MED LIST changes: -BUPIVACAINE HCL 0.25% 10ML VIAL As Ordered ONE; -BUPIVACAINE HCL 0.25% 30ML VIAL As Ordered ONE; -TRIAMCINOLONE ACETONIDE SUSP 40 MG/ML VIAL (J3301) As Ordered ONE; +VITMTA PO; -diazePAM 5MG TABLET As Ordered ONE; -oxyCODONE 5MG TAB As Ordered ONE
[2021-03-25 17:53] VITALS: BP 112/76
--- NOTE | 2021-03-28 10:21 | ROOPDOC ---
[facility] Report Of Operation Report of Operation DATE OF PROCEDURE: 03/25/2021 DIAGNOSIS: left breast suspicious lesion in retroareolar region and right breast suspicious lesions at 9:00 and 6:00 PROCEDURE: ultrasound guided biopsy of suspicious left retroareolar lesion with clip placement, ultrasound guided biopsy of suspicious right breast lesion at 9:00 with clip placement, ultrasound guided attempted aspiration of suspicious right breast lesion at 6:00, followed by ultrasound guided biopsy of right breast 6:00 lesion with clip placement SURGEON: Ehsan Griffith BLOOD LOSS: minimal COMPLICATIONS: none Lidocaine 1% LOT [id number] Expiration 07/2024 Sodium Bicarbonate 8.4% LOT [id number] Expiration 06/2021 LEFT BREAST RETROAREOLAR BIOPSY Hydromark clip LOT [id number] Expiration 08/2023 SHAPE: 4 Bx device: BARD [id number] x10 cm LOT [id number] Expiration 10/2023 new device RIGHT BREAST 9:00 BIOPSY Hydromark clip LOT [id number] Expiration 08/2023 SHAPE: 4 Bx device: BARD [id number] x10 cm LOT [id number] Expiration 10/2023 new device RIGHT BREAST 6:00 BIOPSY Hydromark clip LOT [id number] Expiration 08/2023 SHAPE: 3 Bx device: BARD [id number] x10 cm LOT [id number] Expiration 10/2023 new device Informed consent was obtained. The most common risk and possible complications including bleeding, hematoma, bruising, infection, injury to surrounding structures were explained to the patient and the patient expressed understanding. Patient was placed on the bed in the supine position. Appropriate time out was done stating patients name, date of , and the procedure to be performed. Procedure was started on the left side. The left breast was prepped and draped in the usual fashion. The ultrasound was used to confirm the location of the lesion in the left breast in the retr oareolar region. Plain Lidocaine 1% and 8.4% sodium bicarbonate 10:1 mix was used to anesthetize the skin, the biopsy site and tissues along the anticipated biopsy tract. Small skin incision was made with blade number 11. BARD Marquee 14G cannula with introducer ([id number]) was inserted through the incision and advanced under the ultrasound guidance to position immediately adjacent to the lesion. Next, the introducer was removed and BARD Marquee 14G biopsy device was places in the cannula. Pre-biopsy imaging, and post-biopsy imaging were captured. Five good core biopsies were taken at various levels of the lesion. Specimen was placed in formaldehyde, labeled with appropriate biopsy site and patients name, and sent to pathology for evaluation. Next, the biopsy device was withdrawn and a clip introducer was inserted into the biopsy site via the cannula. SHAPE 4 Hydromark clip was deployed under sonographic guidance. Post-clip placement image was captured. Manual pressure over the biopsy cavity and tract was held after the clip introducer was withdrawn. No bleeding was noted upon removal of the pressure. Next, our attention was turned toward right breast. Patient was repositioned. Second time out was done stating patients name, date of , and the pr ocedure to be performed. The right breast was prepped and draped in the usual fashion. The ultrasound was used to confirm the location of the lesion in the right breast at 9:00 and 6:00 location. We started with the biopsy of right 9:00 lesion first. This lesion is located 3 CFN. Plain Lidocaine 1% and 8.4% sodium bicarbonate 10:1 mix was used to anesthetize the skin, the biopsy site and tissues along the anticipated biopsy tract. Small skin incision was made with blade number 11. BARD Marquee 14G cannula with introducer ([id number]) was inserted through the incision and advanced under the ultrasound guidance to position immediately adjacent to the lesion. Next, the introducer was removed and BARD Marquee 14G biopsy device was places in the cannula. Pre-biopsy imaging, and post-biopsy imaging were captured. Five good core biopsies were taken at various levels of the lesion. Specimen was placed in formaldehyde, labeled with appropriate biopsy site and patients name, and sent to pathology for evaluation. Next, the biopsy device was withdrawn and a clip introducer was inserted into the biopsy site via the cannula. SHAPE 4 Hydromark clip was deployed under sonographic guidance. Post-clip placement image was captured. Manual pressure over the biopsy cavity and tract was held after the clip introducer was withdrawn. No bleeding was noted upon removal of the pressure. At this time, our attention was turned toward the right breast 6:00 lesion located 2 CFN. The location of the lesion was again confirmed using US. Plain Lidocaine 1% and 8.4% sodium bicarbonate 10:1 mix was used to anesthetize the skin, the biopsy site and tissues along the anticipated aspiration/ biopsy tract. Small skin incision was made with blade number 11. 18 G needle was used to access the right breast 6:00 lesion using ultrasound guidance. No fluid was returned and the lesion persisted. Images were captures. Since aspiration of the lesion was not successful, we proceeded with ultrasound guided biopsy of this lesion. BARD Marquee 14G cannula with introducer ([id number]) was inserted through the incision and advanced under the ultrasound guidance to position immediately adjacent to the lesion. Next, the introducer was removed and BARD Marquee 14G biopsy device was places in the cannula. Pre-biopsy imaging, and post-biopsy imaging were captured. Three good core biopsies were taken at various levels of the lesion. After the third core biopsy, lesion was no longer visible. No additional biopsies of this site were pursued. Specimen was placed in formaldehyde, labeled with appropriate biopsy site and patients name, and sent to pathology for evaluation. Next, the biopsy device was withdrawn and a clip introducer was inserted into the biopsy site via the cannula. SHAPE 3 Hydromark clip was deployed under sonographic guidance. Post-clip placement image was captured. Manual pressure over the biopsy cavity and tract was held after the clip introducer was withdrawn. No bleeding was noted upon removal of the pressure. Post-biopsy bilateral mammogram was obtained and showed 2 clips in the right breast and one clip in the left breast in expected positions. Postprocedural dressing was placed. Patient tolerated procedure well. Discharge instructions were discussed with the patient and the patient expressed understanding. EHSAN GRIFFITH DO Mar 28, 2021 10:21
== END ==
LOC: M WHCPRO 08:39
PROVIDERS: ATTEND Surgery
DX: D24.1 Benign neoplasm of right breast (principal); D24.2 Benign neoplasm of left breast; N63.10 Unspecified lump in the right breast, unspecified quadrant; N63.20 Unspecified lump in the left breast, unspecified quadrant
CPT/HCPCS: 19083; 19084; 77066; 88305; G0279

== ENCOUNTER → 2021-04-02 | Outpatient (CLI) | payer OTHER ==
--- NOTE | 2021-04-02 15:51 | REP ---
INDICATION: UNSPECIFIED LUMP IN THE RIGHT BREAST, UNSPECIFIED QUADRANT COMPARISON: None. TECHNIQUE: PA and lateral. FINDINGS: The mediastinum and cardiac silhouette are normal. The lung givens are clear and without acute consolidation, effusion, or pneumothorax. The skeletal structures are intact and normal. IMPRESSION: No acute cardiopulmonary process. <Electronically signed by Ajit Delacruz > 04/02/21 [id number]
== END ==
LOC: M PLAIMG 15:18
PROVIDERS: ATTEND Surgery
DX: N63.10 Unspecified lump in the right breast, unspecified quadrant (principal)

== ENCOUNTER → 2021-04-11 | Outpatient (CLI) | payer OTHER | LOC: M LABSMTC 11:21 | PROVIDERS: ATTEND Anesthesiology | DX: Z01.812 Encounter for preprocedural laboratory examination (principal); Z20.822 Contact with and (suspected) exposure to COVID-19 ==

== ENCOUNTER 2021-04-14 07:07 | Day surgery (SDC) | payer OTHER ==
[~2021-04-14] VITALS: Ht 154.9 cm; Wt 67.9 kg
[~2021-04-14 07:07] MED LIST changes: +HEPARIN SOD (PORCINE) 5000UNITS/ML 1ML VIAL/SYRINGE SQ ONE; +LR 1,000 ML IV ONE; +ceFAZolin SOD 2 GM in IV 1 EA IV ONE
[2021-04-14] MEDS ORDERED: ROCURONIUM BROMIDE 50 MG/5 ML VIAL As Ordered ONE (08:14)
[2021-04-14] MEDS ORDERED: dexameTHASONE 4 MG/ML 1ML VIAL (J1100 PER 1MG) As Ordered ONE (08:14)
[2021-04-14] MEDS ORDERED: LIDOCAINE 2% 100MG/5ML SDV (FOR ANES.) As Ordered ONE (08:14)
[2021-04-14] MEDS ORDERED: propofoL 200 MG/20 ML VIAL As Ordered ONE (08:14)
[2021-04-14] MEDS ORDERED: ONDANSETRON 4MG/2ML VIAL As Ordered ONE (08:14)
[2021-04-14] MEDS ORDERED: fentaNYL 250 MCG/5 ML INJECTION As Ordered ONE (08:15)
[2021-04-14] MEDS ORDERED: MIDAZOLAM INJ 2MG/2ML VIAL (J2250 PER 1MG) As Ordered ONE (08:15)
[2021-04-14] MEDS ORDERED: BUPIVACAINE HCL 0.25% 30ML VIAL As Ordered ONE (08:19)
[2021-04-14] MEDS ORDERED: LIDOCAINE 1% SDV 30ML VIAL As Ordered ONE (08:20)
[2021-04-14] MEDS ORDERED: ceFAZolin 2 GM/D5W 50 ML IV BAG (J0690 PER 500MG) As Ordered ONE (08:56)
[2021-04-14] MEDS ORDERED: SUGAMMADEX SODIUM 500 MG/5 ML VIAL (BRIDION) As Ordered ONE (09:24)
[2021-04-14] MEDS ORDERED: METOCLOPRAMIDE INJ 10MG/2ML VIAL (J2765 PER 1) As Ordered ONE (09:24)
[2021-04-14] MEDS ORDERED: ACETAMINOPHEN 1000MG 100ML IV BTL (OFIRMEV) (J0131 PER 10MG) As Ordered ONE (09:24)
[2021-04-14] MEDS ORDERED: HYDROmorphone HCL 2MG/ML 1ML VIAL As Ordered ONE (09:51)
[2021-04-14] MEDS ORDERED: ULTR50TA8 PO (11:33)
[2021-04-14] MEDS ORDERED: fentaNYL 100 MCG/2 ML INJECTION IV PRN (11:50)
[2021-04-14] MEDS ORDERED: ONDANSETRON 4MG/2ML VIAL IV PRN (11:50)
[2021-04-14] MEDS ORDERED: LR 1,000 ML IV SCH (11:50)
[2021-04-14] MEDS ORDERED: METOCLOPRAMIDE INJ 10MG/2ML VIAL (J2765 PER 1) IV PRN (11:50)
[2021-04-14] MEDS ORDERED: PERCOCET 5MG/325MG TAB PO PRN (11:50)
[2021-04-14 13:20] VITALS: BP 119/64
== END 2021-04-14 13:30 | disposition home or self-care (01) ==
LOC: M SDC 07:07
PROVIDERS: ATTEND Surgery
DX: N60.21 Fibroadenosis of right breast (principal); N60.22 Fibroadenosis of left breast; F17.218 Nicotine dependence, cigarettes, with other nicotine-induced disorders
CPT/HCPCS: 19120; 19125; 36415; 76942; 86850; 86900; 86901; 88307; J0131; J0690; J1100; J1170; J1644; J2250; J2405; J2765; J3010

== ENCOUNTER → 2021-04-23 | Outpatient (CLI) | payer OTHER ==
[~2021-04-23] MED LIST changes: -HEPARIN SOD (PORCINE) 5000UNITS/ML 1ML VIAL/SYRINGE SQ ONE; -LR 1,000 ML IV ONE; +ULTR50TA8 PO; -ceFAZolin SOD 2 GM in IV 1 EA IV ONE
== END ==
LOC: M PAIN 14:30
PROVIDERS: ATTEND Anesthesiology
DX: D36.15 Benign neoplasm of peripheral nerves and autonomic nervous system of abdomen (principal); G89.29 Other chronic pain; Z87.891 Personal history of nicotine dependence; Z79.899 Other long term (current) drug therapy

== ENCOUNTER → 2021-05-14 | Outpatient (CLI) | payer OTHER ==
[2021-05-14 16:22] LABS: ALBUMIN 3.8 GM/DL (3.2-5.2); BILIRUBIN,DIRECT 0.1 MG/DL (0.0-0.2); BILIRUBIN,TOTAL 0.5 MG/DL (0.2-1.0); PERCENT SATURATION 56.9 % (13.2-45.0); TOTAL PROTEIN 7.1 GM/DL (6.4-8.2)
== END ==
LOC: M WUC 10:50
PROVIDERS: ATTEND Internal Medicine Gastroenterology
DX: R94.5 Abnormal results of liver function studies (principal)

== ENCOUNTER → 2021-09-28 | Outpatient (CLI) | payer OTHER | LOC: M WHC 14:44 | PROVIDERS: ATTEND Surgery | DX: N63.13 Unspecified lump in the right breast, lower outer quadrant (principal); Z97.8 Presence of other specified devices ==

== ENCOUNTER → 2021-10-05 | Outpatient (CLI) | payer OTHER ==
[2021-10-05 20:15] LABS: ALBUMIN 3.5 GM/DL (3.2-5.2); ALT/SGPT 22 U/L (12-78); AMYLASE 53 U/L (25-115); BILIRUBIN,TOTAL 0.2 MG/DL (0.2-1.0); BLOOD UREA NITROGEN 12 MG/DL (7-18); CALCIUM LEVEL 9.3 MG/DL (8.5-10.1); CARBON DIOXIDE LEVEL 27 MEQ/L (21-32); CHLORIDE LEVEL 109 MEQ/L (98-107); CREATININE FOR GFR 0.72 MG/DL (0.55-1.30); GLOMERULAR FILTRATION RATE > 60.0 (>60); GLUCOSE, FASTING 87 MG/DL (70-100); LIPASE 223 U/L (73-393); POTASSIUM SERUM 3.6 MEQ/L (3.5-5.1); SODIUM LEVEL 142 MEQ/L (136-145)
== END ==
LOC: M WUC 15:33
PROVIDERS: ATTEND Physician Assistant
DX: R10.9 Unspecified abdominal pain (principal)

== ENCOUNTER → 2021-10-14 | Outpatient (CLI) | payer OTHER ==
[~2021-10-14] MED LIST changes: +GASTROGRAFIN SOLUTION 30ML (Q9963) ONE; +ISOVUE-370 76% 100ML VIAL ONE
== END ==
LOC: M PLAIMG 10:39
PROVIDERS: ATTEND Physician Assistant
DX: R10.9 Unspecified abdominal pain (principal)
CPT/HCPCS: 74177; Q9963; Q9967

== ENCOUNTER 2021-11-25 07:41 | Emergency (ER) | payer OTHER ==
[~2021-11-25] VITALS: Ht 154.9 cm; Wt 65.8 kg
[~2021-11-25 07:41] MED LIST changes: -GASTROGRAFIN SOLUTION 30ML (Q9963) ONE; -ISOVUE-370 76% 100ML VIAL ONE
[2021-11-25 07:43] VITALS: BP 125/85
[2021-11-25] MEDS ORDERED: GABA-282 (07:54)
[2021-11-25] MEDS ORDERED: VALA1TAB5 PO (08:32)
[2021-11-25] MEDS ORDERED: MUPI30CR TOP (08:32)
== END 2021-11-25 08:50 | disposition home or self-care (01) ==
LOC: M ED 07:41
DX: L03.116 Cellulitis of left lower limb (principal); B02.9 Zoster without complications; F33.9 Major depressive disorder, recurrent, unspecified; Z79.899 Other long term (current) drug therapy

== ENCOUNTER → 2022-03-05 | Outpatient (CLI) | payer OTHER ==
[~2022-03-05] MED LIST changes: +GABA-282; +MUPI30CR TOP; +VALA1TAB5 PO
== END ==
LOC: M WHC 10:11
PROVIDERS: ATTEND Specialist
DX: Z12.31 Encounter for screening mammogram for malignant neoplasm of breast (principal)

== ENCOUNTER 2022-08-02 20:54 | Emergency (ER) | payer OTHER ==
[~2022-08-02] VITALS: Ht 154.9 cm; Wt 67.4 kg
[2022-08-02 22:05] LABS: BASO # 0.1 10^3/uL (0.0-0.2); BASO % 0.6 % (0.0-1.0); EOS # 0.3 10^3/uL (0.0-0.5); EOS % 2.4 % (0.0-3.0); HEMATOCRIT 41.5 % (36.0-47.0); HEMOGLOBIN 13.9 g/dl (12.0-15.5); LYMPH # 2.7 10^3/uL (1.5-5.0); LYMPH % 25.9 % (24.0-44.0); MEAN CORPUSCULAR HEMOGLOBIN 32.6 pg (27.0-33.0); MEAN CORPUSCULAR HGB CONC 33.5 g/dl (32.0-36.5); MEAN CORPUSCULAR VOLUME 97.2 fl (80.0-96.0); MONO # 0.9 10^3/uL (0.0-0.8); MONO % 8.4 % (2.0-8.0); NEUTROPHILS # 6.4 10^3/uL (1.5-8.5); NEUTROPHILS % 62.4 % (36.0-66.0); PLATELET COUNT, AUTOMATED 287 10^3/uL (150-450); RED BLOOD COUNT 4.27 10^6/uL (4.00-5.40); WHITE BLOOD COUNT 10.3 10^3/uL (4.0-10.0)
[2022-08-02 22:26] LABS: LIPASE 43 U/L (12-53)
[2022-08-02 22:28] LABS: AMYLASE 49 U/L (30-118)
[2022-08-02 22:30] LABS: ALBUMIN 3.8 G/DL (3.2-5.2); ALKALINE PHOSPHATASE 63 U/L (46-116); ALT/SGPT 20 U/L (7.0-40); AST/SGOT 18 U/L (<34); BILIRUBIN,DIRECT < 0.1 MG/DL (<0.4); BILIRUBIN,TOTAL 0.2 MG/DL (0.3-1.2); BLOOD UREA NITROGEN 7 MG/DL (9-23); CALCIUM LEVEL 9.5 MG/DL (8.5-10.1); CARBON DIOXIDE LEVEL 29 MMOL/L (20-31); CHLORIDE LEVEL 108 MMOL/L (98-107); CREATININE FOR GFR 0.76 MG/DL (0.55-1.30); GLOMERULAR FILTRATION RATE > 60.0 (>60); GLUCOSE, FASTING 124 MG/DL (60-100); POTASSIUM SERUM 4.1 MMOL/L (3.5-5.1); SODIUM LEVEL 143 MMOL/L (136-145); TOTAL PROTEIN 6.9 G/DL (5.7-8.2)
[2022-08-02 22:33] LABS: HCG, SERUM QUALITATIVE NEGATIVE (NEGATIVE)
[2022-08-02] MEDS ORDERED: KETOROLAC 30 MG/ML 1ML VIAL IM ONE (23:35)
[2022-08-02 23:45] VITALS: BP 117/83
[2022-08-03 00:22] LABS: GC DNA AMPLIFICATION NEGATIVE (NEGATIVE)
[2022-08-03] MEDS ORDERED: KETO10TAB PO (01:22)
[2022-08-03] MEDS ORDERED: DOXY-443 PO (01:22)
[2022-08-03] MEDS ORDERED: DOXYCYCLINE HYCLATE 100MG TABLET PO ONE (01:25)
[2022-08-03 02:10] LABS: MONO REFLEX EBV COMP NEGATIVE (NEGATIVE)
[2022-08-04 14:09] LABS: EBV VIRAL CAPSID AG IgG >600.0 U/mL (0.0-17.9); EBV VIRAL CAPSID AG IgM <36.0 U/mL (0.0-35.9)
== END 2022-08-03 01:41 | disposition home or self-care (01) ==
LOC: M ED 20:54
DX: L04.9 Acute lymphadenitis, unspecified (principal); R74.01 Elevation of levels of liver transaminase levels; Z87.891 Personal history of nicotine dependence; Z79.891 Long term (current) use of opiate analgesic; Z79.899 Other long term (current) drug therapy
CPT/HCPCS: 76857; 80048; 80076; 81001; 82150; 83690; 84703; 85025; 86308; 86664; 86665; 87810; 87850; 96372; 99284; J1885

== ENCOUNTER → 2022-09-10 | Outpatient (CLI) | payer OTHER ==
[~2022-09-10] MED LIST changes: +DOXY-443 PO; +KETO10TAB PO
== END ==
LOC: M WUC 15:32
PROVIDERS: ATTEND Physician Assistant
DX: S60.012A Contusion of left thumb without damage to nail, initial encounter (principal); M25.842 Other specified joint disorders, left hand

== ENCOUNTER → 2022-10-07 | Outpatient (CLI) | payer OTHER | LOC: M PLALAB 08:46 | PROVIDERS: ATTEND Nurse Practitioner Family | DX: Z12.4 Encounter for screening for malignant neoplasm of cervix (principal); Z80.3 Family history of malignant neoplasm of breast; R87.5 Abnormal microbiological findings in specimens from female genital organs ==

== ENCOUNTER 2022-10-28 11:37 | Emergency (ER) | payer OTHER ==
[~2022-10-28] VITALS: Ht 154.9 cm; Wt 61.2 kg
[2022-10-28 11:38] VITALS: TEMP 98.1
[2022-10-28 12:49] LABS: BASO % 0.5 % (0.0-1.0); EOS # 0.1 10^3/uL (0.0-0.5); EOS % 1.2 % (0.0-3.0); HEMATOCRIT 41.2 % (36.0-47.0); HEMOGLOBIN 13.9 g/dl (12.0-15.5); LYMPH # 1.9 10^3/uL (1.5-5.0); LYMPH % 32.4 % (24.0-44.0); MEAN CORPUSCULAR HGB CONC 33.7 g/dl (32.0-36.5); MEAN CORPUSCULAR VOLUME 94.7 fl (80.0-96.0); MONO # 0.6 10^3/uL (0.0-0.8); MONO % 10.6 % (2.0-8.0); NEUTROPHILS # 3.3 10^3/uL (1.5-8.5); NEUTROPHILS % 55.1 % (36.0-66.0); PLATELET COUNT, AUTOMATED 242 10^3/uL (150-450); RED BLOOD COUNT 4.35 10^6/uL (4.00-5.40)
[2022-10-28 13:13] LABS: LIPASE 35 U/L (12-53)
[2022-10-28 13:15] LABS: ALBUMIN 3.9 G/DL (3.2-5.2); ALKALINE PHOSPHATASE 44 U/L (46-116); ALT/SGPT 19 U/L (7.0-40); AST/SGOT 18 U/L (<34); BILIRUBIN,DIRECT 0.2 MG/DL (<0.4); BILIRUBIN,TOTAL 0.7 MG/DL (0.3-1.2); BLOOD UREA NITROGEN 6 MG/DL (9-23); CALCIUM LEVEL 8.9 MG/DL (8.5-10.1); CARBON DIOXIDE LEVEL 25 MMOL/L (20-31); CHLORIDE LEVEL 109 MMOL/L (98-107); CREATININE FOR GFR 0.81 MG/DL (0.55-1.30); GLOMERULAR FILTRATION RATE > 60.0 (>60); GLUCOSE, FASTING 89 MG/DL (60-100); POTASSIUM SERUM 4.3 MMOL/L (3.5-5.1); SODIUM LEVEL 138 MMOL/L (136-145); TOTAL PROTEIN 6.8 G/DL (5.7-8.2)
[2022-10-28 13:17] LABS: HCG, SERUM QUALITATIVE NEGATIVE (NEGATIVE)
[2022-10-28] MEDS ORDERED: NS 1,000 ML IV ONE (14:35)
[2022-10-28] MEDS ORDERED: ONDANSETRON 4MG 2ML VIAL IV ONE (14:35)
[2022-10-28] MEDS ORDERED: ISOVUE-370 76% 100ML VIAL As Ordered ONE (14:45)
[2022-10-28] MEDS ORDERED: ONDA4TAB6 PO (15:58)
[2022-10-28 16:41] VITALS: BP 107/70; O2SAT 100
== END 2022-10-28 16:41 | disposition home or self-care (01) ==
LOC: M ED 11:37
DX: N83.201 Unspecified ovarian cyst, right side (principal); F17.200 Nicotine dependence, unspecified, uncomplicated; F12.10 Cannabis abuse, uncomplicated; F10.10 Alcohol abuse, uncomplicated; Z79.83 Long term (current) use of bisphosphonates; Z79.899 Other long term (current) drug therapy
CPT/HCPCS: 74177; 80048; 80076; 81001; 83690; 84703; 85025; 96361; 96374; 99284; J2405; Q9967

== ENCOUNTER 2022-12-30 16:15 | Inpatient (IN) | payer OTHER ==
[~2022-12-30] VITALS: Ht 154.9 cm; Wt 58.2 kg
[~2022-12-30 16:15] MED LIST changes: +ONDA4TAB6 PO
[2022-12-30 17:28] LABS: HEMATOCRIT 39.1 % (36.0-47.0); HEMOGLOBIN 13.1 g/dl (12.0-15.5); MEAN CORPUSCULAR HEMOGLOBIN 31.9 pg (27.0-33.0); MEAN CORPUSCULAR HGB CONC 33.5 g/dl (32.0-36.5); MEAN CORPUSCULAR VOLUME 95.1 fl (80.0-96.0); PLATELET COUNT, AUTOMATED 306 10^3/uL (150-450); RED BLOOD COUNT 4.11 10^6/uL (4.00-5.40); WHITE BLOOD COUNT 7.3 10^3/uL (4.0-10.0)
[2022-12-30 17:39] LABS: ETHYL ALCOHOL (ETHANOL) < 0.003 % (0.000-0.010)
[2022-12-30 17:41] LABS: ACETAMINOPHEN LEVEL < 2.0 UG/ML (10.0-20.0); ALKALINE PHOSPHATASE 54 U/L (46-116); ALT/SGPT 15 U/L (7.0-40); AST/SGOT 10 U/L (<34); BILIRUBIN,DIRECT 0.2 MG/DL (<0.4); BILIRUBIN,TOTAL 0.7 MG/DL (0.3-1.2); BLOOD UREA NITROGEN 7 MG/DL (9-23); CALCIUM LEVEL 9.8 MG/DL (8.5-10.1); CARBON DIOXIDE LEVEL 26 MMOL/L (20-31); CHLORIDE LEVEL 105 MMOL/L (98-107); CREATININE FOR GFR 0.75 MG/DL (0.55-1.30); GLOMERULAR FILTRATION RATE > 60.0 (>60); GLUCOSE, FASTING 89 MG/DL (60-100); POTASSIUM SERUM 3.6 MMOL/L (3.5-5.1); SALICYLATE LEVEL < 3.0 MG/DL (<30); SODIUM LEVEL 140 MMOL/L (136-145); TOTAL PROTEIN 7.2 G/DL (5.7-8.2)
[2022-12-30 17:44] LABS: THYROID STIMULATING HORMONE 2.202 uIU/ML (0.55-4.78)
[2022-12-30 17:50] LABS: AMPHETAMINES LEVEL URINE NEGATIVE (NEGATIVE); BARBITURATES URINE NEGATIVE (NEGATIVE); COCAINE METABOLITE URINE NEGATIVE (NEGATIVE); METHADONE URINE NEGATIVE (NEGATIVE); OPIATES URINE NEGATIVE (NEGATIVE); PHENCYCLIDINE URINE NEGATIVE (NEGATIVE)
[2022-12-30 17:51] LABS: BENZODIAZEPINES URINE NEGATIVE (NEGATIVE); CANNABINOIDS URINE NEGATIVE (NEGATIVE)
[2022-12-30] MEDS ORDERED: MED REC IN PROGRESS XX SCH (19:05)
[2022-12-30 19:15] LABS: HCG, SERUM QUALITATIVE NEGATIVE (NEGATIVE)
[2022-12-30] MEDS ORDERED: ACETAMINOPHEN TAB 650MG DOSE (2X325MG) PO PRN (19:45)
[2022-12-30] MEDS ORDERED: MAALOX 30 ML SUSP *UDC PO PRN (19:45)
[2022-12-30] MEDS ORDERED: MOM 30ML SUSPENSION UDC PO PRN (19:45)
[2022-12-30] MEDS ORDERED: IBUPROFEN 400MG TAB PO PRN (19:45)
[2022-12-30] MEDS ORDERED: OMEP-173 PO (21:02)
[2022-12-30] MEDS ORDERED: VITMTA PO (21:02)
[2022-12-30] MEDS ORDERED: HOME MED LIST COMPLETE! XX SCH (21:05)
[2022-12-30 22:00] VITALS: BP 112/77; TEMP 98.2; O2SAT 99
[2022-12-31 06:46] VITALS: BP 116/65; TEMP 97.6; O2SAT 98
[2022-12-31] MEDS: NICOTINE 21MG/24HR 1 EA TRANSDERMAL TD SCH (11:50)
[2022-12-31] MEDS: OMEPRAZOLE 20MG CAP PO SCH (11:50)
[2022-12-31] MEDS: DIVALPROEX 125 MG TAB PO SCH ×2 (12:10→21:23)
[2022-12-31 17:41] VITALS: BP 120/81; TEMP 96.7; O2SAT 100
[2022-12-31] MEDS: traZODone 50 MG TAB PO PRN (23:02)
[2023-01-01 06:42] VITALS: BP 126/67; TEMP 97.7; O2SAT 99
[2023-01-01] MEDS: OMEPRAZOLE 20MG CAP PO SCH (08:47)
[2023-01-01] MEDS: DIVALPROEX 125 MG TAB PO SCH ×2 (08:48→20:41)
[2023-01-01] MEDS: NICOTINE 21MG/24HR 1 EA TRANSDERMAL TD SCH (08:49)
[2023-01-01 18:42] VITALS: BP 121/74; TEMP 96.4; O2SAT 83
[2023-01-01] MEDS: traZODone 50 MG TAB PO PRN (22:32)
[2023-01-02 06:48] VITALS: BP 100/62; TEMP 98; O2SAT 97
[2023-01-02] MEDS: OMEPRAZOLE 20MG CAP PO SCH (09:09)
[2023-01-02] MEDS: DIVALPROEX 125 MG TAB PO SCH ×2 (09:09→20:46)
[2023-01-02] MEDS: NICOTINE 21MG/24HR 1 EA TRANSDERMAL TD SCH (09:10)
[2023-01-02 19:09] VITALS: BP 131/87; TEMP 97.1
[2023-01-02] MEDS: diphenhydrAMINE 25MG CAP PO PRN (23:12)
[2023-01-02] MEDS: traZODone 50 MG TAB PO PRN (23:12)
[2023-01-03 06:23] VITALS: BP 94/55; TEMP 98.6; O2SAT 99
[2023-01-03] MEDS: OMEPRAZOLE 20MG CAP PO SCH (08:21)
[2023-01-03] MEDS: DIVALPROEX 125 MG TAB PO SCH (08:22)
[2023-01-03] MEDS: NICOTINE 21MG/24HR 1 EA TRANSDERMAL TD SCH (08:22)
[2023-01-03 18:00] VITALS: BP 122/88; TEMP 97.9
[2023-01-03] MEDS: DIVALPROEX 250MG *ER* TAB PO SCH (21:01)
[2023-01-03] MEDS: traZODone 50 MG TAB PO PRN (23:04)
[2023-01-04 05:58] VITALS: BP 98/64; TEMP 97.8; O2SAT 100
[2023-01-04] MEDS: OMEPRAZOLE 20MG CAP PO SCH (09:02)
[2023-01-04] MEDS: NICOTINE 21MG/24HR 1 EA TRANSDERMAL TD SCH (09:02)
[2023-01-04] MEDS: diphenhydrAMINE 25MG CAP PO PRN (11:30)
[2023-01-04 19:28] VITALS: BP 114/72; TEMP 98.6
[2023-01-04] MEDS: DIVALPROEX 250MG *ER* TAB PO SCH (21:03)
[2023-01-04] MEDS: traZODone 50 MG TAB PO PRN (23:02)
[2023-01-05 06:37] VITALS: BP 98/58; TEMP 97.4; O2SAT 99
[2023-01-05] MEDS ORDERED: DEPA250T2 PO (08:01)
[2023-01-05] MEDS ORDERED: TRAZ-252 PO (08:01)
[2023-01-05] MEDS: OMEPRAZOLE 20MG CAP PO SCH (08:53)
[2023-01-05] MEDS: NICOTINE 21MG/24HR 1 EA TRANSDERMAL TD SCH (09:00)
== END 2023-01-05 10:55 | disposition home or self-care (01) | DRG 753 ==
LOC: M ED 16:15 → M ED INP 19:42 → M PSY 23:00
PROVIDERS: ADMIT Student in an Organized Health Care Education/Training Program; ATTEND Student in an Organized Health Care Education/Training Program
DX: F31.9 Bipolar disorder, unspecified (principal); F17.210 Nicotine dependence, cigarettes, uncomplicated

== ENCOUNTER → 2023-01-26 | Outpatient (CLI) | payer OTHER ==
[~2023-01-26] MED LIST changes: +DEPA250T2 PO; +OMEP-173 PO; +TRAZ-252 PO
== END ==
LOC: M WHC 07:40
PROVIDERS: ATTEND Nurse Practitioner Family
DX: N83.201 Unspecified ovarian cyst, right side (principal)

== ENCOUNTER → 2023-02-18 | Outpatient (CLI) | payer OTHER | LOC: M PLARAD 15:04 | PROVIDERS: ATTEND Specialist | DX: R10.2 Pelvic and perineal pain (principal) ==

== ENCOUNTER → 2023-03-09 | Outpatient (CLI) | payer OTHER | LOC: M WHC 08:11 | PROVIDERS: ATTEND Specialist | DX: Z12.31 Encounter for screening mammogram for malignant neoplasm of breast (principal); N63.12 Unspecified lump in the right breast, upper inner quadrant ==

== ENCOUNTER 2023-06-24 14:06 | Day surgery (SDC) | payer OTHER ==
[~2023-06-24] VITALS: Ht 154.9 cm; Wt 63.5 kg
[~2023-06-24 14:06] MED LIST changes: +CLON-412 PO; +DIVA250T7 PO; +LR 1,000 ML IV SCH; +SPIR50TA4 PO; +THERTAB52 PO
[2023-06-24 14:53] LABS: HEMATOCRIT 37.3 % (36.0-47.0); HEMOGLOBIN 12.5 g/dl (12.0-15.5); MEAN CORPUSCULAR HEMOGLOBIN 32.1 pg (27.0-33.0); MEAN CORPUSCULAR HGB CONC 33.5 g/dl (32.0-36.5); MEAN CORPUSCULAR VOLUME 95.6 fl (80.0-96.0); PLATELET COUNT, AUTOMATED 252 10^3/uL (150-450); WHITE BLOOD COUNT 6.4 10^3/uL (4.0-10.0)
[2023-06-24] MEDS ORDERED: KETOROLAC 60MG 2ML VIAL As Ordered ONE (16:20)
[2023-06-24] MEDS ORDERED: METOCLOPRAMIDE INJ 10MG/2ML VIAL As Ordered ONE (16:20)
[2023-06-24] MEDS ORDERED: fentaNYL 250 MCG/5 ML INJECTION As Ordered ONE (16:20)
[2023-06-24] MEDS ORDERED: SUGAMMADEX SODIUM 500 MG/5 ML VIAL (BRIDION) As Ordered ONE (16:20)
[2023-06-24] MEDS ORDERED: ONDANSETRON 4MG 2ML VIAL As Ordered ONE (16:20)
[2023-06-24] MEDS ORDERED: dexmedeTOMIDine (4MCG/ML)200MCG/50ML BTL (PRECEDEX) As Ordered ONE (16:20)
[2023-06-24] MEDS ORDERED: propofoL 200 MG/20 ML VIAL As Ordered ONE (16:20)
[2023-06-24] MEDS ORDERED: ROCURONIUM BROMIDE 50MG/5ML VIAL As Ordered ONE (16:20)
[2023-06-24] MEDS ORDERED: LIDOCAINE 2% 100MG/5ML SDV (FOR ANES.) As Ordered ONE (16:20)
[2023-06-24] MEDS ORDERED: ACETAMINOPHEN 1000MG 100ML IV BAG As Ordered ONE (16:20)
[2023-06-24] MEDS ORDERED: MIDAZOLAM INJ 2MG/2ML VIAL As Ordered ONE (16:20)
[2023-06-24] MEDS ORDERED: ONDANSETRON 4MG 2ML VIAL IV PRN (17:40)
[2023-06-24] MEDS ORDERED: oxyCODONE 5MG TAB PO PRN (17:40)
[2023-06-24] MEDS ORDERED: MORPHINE 2 MG/ML 1ML VIAL IV PRN (17:40)
[2023-06-24] MEDS ORDERED: fentaNYL 100 MCG/2 ML INJECTION IV PRN (17:40)
[2023-06-24] MEDS ORDERED: PERCOCET 5MG/325MG TAB PO PRN (18:10)
[2023-06-24] MEDS ORDERED: LR 1,000 ML IV SCH (18:10)
[2023-06-24] MEDS ORDERED: OXYC1TAB23 PO (18:47)
[2023-06-24] MEDS ORDERED: IBUP-1022 PO (18:47)
[2023-06-24 19:00] VITALS: BP 115/72; TEMP 97.1; O2SAT 100
== END 2023-06-24 19:52 | disposition home or self-care (01) ==
LOC: M SDC 14:06
PROVIDERS: ATTEND Specialist
DX: N80.C10 Endometriosis of the anterior abdominal wall, subcutaneous tissue (principal); R10.2 Pelvic and perineal pain; K21.9 Gastro-esophageal reflux disease without esophagitis; Z90.710 Acquired absence of both cervix and uterus; Z79.899 Other long term (current) drug therapy; Z98.51 Tubal ligation status; F17.290 Nicotine dependence, other tobacco product, uncomplicated
CPT/HCPCS: 22903; 49320; 85027; 88305; C9290; J0131; J0665; J1100; J1885; J2250; J2405; J2765; J3010

== ENCOUNTER 2024-02-14 16:56 | Inpatient (IN) | payer OTHER ==
[~2024-02-14] VITALS: Ht 154.9 cm; Wt 67.5 kg
[~2024-02-14 16:56] MED LIST changes: +DOXY-441 PO; -DOXY-443 PO; +GABA-1172; -GABA-282; +IBUP-1022 PO; -LR 1,000 ML IV SCH; +ONDA-282 PO; -ONDA4TAB6 PO
[2024-02-14 17:35] LABS: BASO % 0.5 % (0.0-1.0); EOS # 0.1 10^3/uL (0.0-0.5); EOS % 1.6 % (0.0-3.0); HEMATOCRIT 39.8 % (36.0-47.0); HEMOGLOBIN 13.4 g/dl (12.0-15.5); LYMPH % 24.2 % (24.0-44.0); MEAN CORPUSCULAR HEMOGLOBIN 32.4 pg (27.0-33.0); MEAN CORPUSCULAR HGB CONC 33.7 g/dl (32.0-36.5); MEAN CORPUSCULAR VOLUME 96.1 fl (80.0-96.0); MONO # 0.8 10^3/uL (0.0-0.8); MONO % 9.1 % (2.0-8.0); NEUTROPHILS # 5.4 10^3/uL (1.5-8.5); NEUTROPHILS % 64.2 % (36.0-66.0); PLATELET COUNT, AUTOMATED 278 10^3/uL (150-450); RED BLOOD COUNT 4.14 10^6/uL (4.00-5.40); WHITE BLOOD COUNT 8.3 10^3/uL (4.0-10.0)
[2024-02-14 17:55] LABS: ETHYL ALCOHOL (ETHANOL) 0.004 % (0.000-0.010)
[2024-02-14 17:57] LABS: ALBUMIN 3.7 G/DL (3.2-5.2); ALKALINE PHOSPHATASE 49 U/L (46-116); ALT/SGPT 15 U/L (7.0-40); AST/SGOT 12 U/L (<34); BILIRUBIN,DIRECT 0.3 MG/DL (<0.4); BILIRUBIN,TOTAL 0.8 MG/DL (0.3-1.2); BLOOD UREA NITROGEN 8 MG/DL (9-23); CALCIUM LEVEL 9.4 MG/DL (8.5-10.1); CARBON DIOXIDE LEVEL 26 MMOL/L (20-31); CHLORIDE LEVEL 111 MMOL/L (98-107); CPK CREATINE PHOSPHOKINASE 104 U/L (34-145); CREATININE FOR GFR 0.73 MG/DL (0.55-1.30); GLOMERULAR FILTRATION RATE > 60.0 (>60); GLUCOSE, FASTING 105 MG/DL (60-100); POTASSIUM SERUM 3.9 MMOL/L (3.5-5.1); SALICYLATE LEVEL < 3.0 MG/DL (<30); SODIUM LEVEL 141 MMOL/L (136-145); TOTAL PROTEIN 6.8 G/DL (5.7-8.2)
[2024-02-14] MEDS ORDERED: ARIP1TAB6 PO (17:57)
[2024-02-14 18:00] LABS: THYROID STIMULATING HORMONE 3.019 uIU/ML (0.55-4.78)
[2024-02-14 18:03] LABS: AMPHETAMINES LEVEL URINE NEGATIVE (NEGATIVE); BARBITURATES URINE NEGATIVE (NEGATIVE); BENZODIAZEPINES URINE NEGATIVE (NEGATIVE); COCAINE METABOLITE URINE NEGATIVE (NEGATIVE); METHADONE URINE NEGATIVE (NEGATIVE); OPIATES URINE NEGATIVE (NEGATIVE); PHENCYCLIDINE URINE NEGATIVE (NEGATIVE)
[2024-02-14 18:07] LABS: CANNABINOIDS URINE POSITIVE (NEGATIVE)
[2024-02-14] MEDS: NS 1,000 ML IV ONE (18:50)
[2024-02-14] MEDS ORDERED: HOME MED LIST COMPLETE! XX SCH (20:30)
[2024-02-15] MEDS ORDERED: diphenhydrAMINE 25MG CAP PO PRN (01:05)
[2024-02-15] MEDS ORDERED: traZODone 50 MG TAB PO PRN (01:05)
[2024-02-15] MEDS ORDERED: IBUPROFEN 400MG TAB PO PRN (01:05)
[2024-02-15] MEDS ORDERED: MOM 30ML SUSPENSION UDC PO PRN (01:05)
[2024-02-15] MEDS ORDERED: MAALOX 30 ML SUSP *UDC PO PRN (01:05)
[2024-02-15 01:58] VITALS: BP 114/66; TEMP 98.3; O2SAT 99
[2024-02-15 06:26] VITALS: BP 113/59; TEMP 98.8; O2SAT 97
[2024-02-15] MEDS: NICOTINE 21MG/24HR 1 EA TRANSDERMAL TD SCH (13:17)
[2024-02-15 18:11] VITALS: BP 111/69; TEMP 99.7
[2024-02-15] MEDS: DIVALPROEX 250MG *ER* TAB PO SCH (20:24)
[2024-02-16 06:09] VITALS: BP 101/59; TEMP 97.7; O2SAT 98
[2024-02-16 15:13] VITALS: BP 124/81; TEMP 98.8; O2SAT 100
[2024-02-17 06:21] VITALS: BP 113/63; TEMP 97.5; O2SAT 100
[2024-02-17] MEDS: ACETAMINOPHEN TAB 650MG DOSE (2X325MG) PO PRN (12:21)
[2024-02-17 14:56] VITALS: BP 117/73; TEMP 98.1; O2SAT 96
[2024-02-18 15:15] VITALS: BP 105/64; TEMP 97.9; O2SAT 100
[2024-02-19 07:02] VITALS: BP 103/68; TEMP 98.4; O2SAT 98
[2024-02-19 15:45] VITALS: BP 107/71; TEMP 98.2; O2SAT 100
[2024-02-20 06:19] VITALS: BP 128/61; TEMP 98.4; O2SAT 100
== END 2024-02-20 13:46 | disposition home or self-care (01) | DRG 753 ==
LOC: M ED 16:56 → EDBD 16:56 → M ED INP 02-15 01:02 → M PSY 02-15 01:53
PROVIDERS: ADMIT Psychiatry & Neurology Psychiatry; ATTEND Psychiatry & Neurology Psychiatry
DX: F31.60 Bipolar disorder, current episode mixed, unspecified (principal); F41.9 Anxiety disorder, unspecified; F43.23 Adjustment disorder with mixed anxiety and depressed mood; F17.200 Nicotine dependence, unspecified, uncomplicated; F12.90 Cannabis use, unspecified, uncomplicated

== ENCOUNTER → 2024-03-29 | Outpatient (CLI) | payer OTHER ==
[~2024-03-29] MED LIST changes: +ARIP1TAB6 PO
== END ==
LOC: M WHC 07:48
PROVIDERS: ATTEND Nurse Practitioner Family
DX: N63.20 Unspecified lump in the left breast, unspecified quadrant (principal); R92.333 Mammographic heterogeneous density, bilateral breasts

== ENCOUNTER → 2024-05-10 | Outpatient (CLI) | payer OTHER | LOC: M EKG 15:56 | PROVIDERS: ATTEND Registered Nurse Psychiatric/Mental Health | DX: F39 Unspecified mood [affective] disorder (principal) ==

== ENCOUNTER → 2025-01-28 | Outpatient (CLI) | payer OTHER ==
[~2025-01-28] MED LIST changes: +DEPA250T PO; -DEPA250T2 PO; -IBUP-1022 PO; +IBUP600T42 PO
== END ==
LOC: M WUC 14:48
PROVIDERS: ATTEND Nurse Practitioner Family
DX: M79.642 Pain in left hand (principal)

== ENCOUNTER → 2025-04-17 | Outpatient (CLI) | payer OTHER | LOC: M WHC 07:08 | PROVIDERS: ATTEND Specialist | DX: Z12.31 Encounter for screening mammogram for malignant neoplasm of breast (principal); R92.323 Mammographic fibroglandular density, bilateral breasts ==